=== PATIENT | female | born 1955 | race Caucasian/White ===

== ENCOUNTER 2023-10-20 09:44 | Outpatient (REF) | payer BC, SELFPAY ==
--- NOTE | ~2023-10-20 | US_ITS ---
EXAMINATION: Noninvasive assessment of the right lower extremity with ARTERIAL DUPLEX. CLINICAL INFORMATION: Peripheral vascular disease with history of right SFA occlusion TECHNIQUE: Duplex Doppler techniques with waveform analysis and measurement of velocities in the right common femoral, profunda femoris, superficial femoral, popliteal and tibial arteries were performed. COMPARISON: None FINDINGS: DIRECT DUPLEX DOPPLER FINDINGS: RIGHT LEG: Common femoral artery: 110 cm/s, phasicity: Triphasic Profunda femoris artery: 158 cm/s, phasicity: Triphasic Superficial femoral artery (proximal): 99 cm/s, phasicity: Monophasic Superficial femoral artery (mid): 42.1 cm/s, phasicity: Monophasic Superficial femoral artery (distal): Occluded Popliteal artery: Occluded Posterior tibial artery: 27.3 cm/s, phasicity: Monophasic Peroneal artery: Not visualized Anterior tibial artery: 22.3 cm/s, phasicity: Monophasic Dorsalis pedis artery: 14.9 cm/s, phasicity:Monophasic US/US arterial duplex LE RT IMPRESSION: 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
[2023-10-20 10:38] LABS: INTERNATIONAL NORM RATIO 0.8 (0.9-1.1); Prothrombin Time 10.2 SEC (11.1-13.3)
[2023-10-20 10:40] LABS: Partial Thromboplastin Time 28.5 SEC (26.0-36.8)
[2023-10-21 15:29] LABS: Homocysteine 14.2 umol/L (<10.4)
[2023-10-21 23:44] LABS: Cardiolipin IgG Ab <2.0 GPL-U/mL; Cardiolipin IgM Ab <2.0 MPL-U/mL
[2023-10-24 22:48] LABS: Anti-Thrombin III Antigen 116 % normal (80-120)
[2023-10-25 00:34] LABS: Protein C Activity 145 % normal (70-180); Protein S Activity rflx Tot&Fr 130 % normal (60-140)
[2023-10-28 23:44] LABS: PTT (LAC) Screen 29 sec (<=40)
[2023-10-29 22:12] LABS: Factor V Leiden NEGATIVE
[2023-10-29 22:32] LABS: Prothrombin 20210A NEGATIVE
== END 2023-10-20 09:45 | disposition home or self-care (01) ==
LOC: HO.US 09:44
PROVIDERS: PCP Nurse Practitioner Adult Health; Visit Provider Internal Medicine Medical Oncology
DX: I70.201 Unspecified atherosclerosis of native arteries of extremities, right leg (principal)
CPT/HCPCS: 36415; 81240; 81241; 83090; 85301; 85302; 85303; 85306; 85597; 85598; 85610; 85613; 85730; 86147; 93926

== ENCOUNTER 2024-02-09 13:35 | Outpatient (AMB) | payer BC, SELFPAY ==
--- NOTE | 2024-02-09 13:41 | A.OFFVIS_ITS ---
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 Complex history. States she has trouble walking, feel like she is swaying/swinging . Uses a cane to ambulate. 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 She has been seen by multiple providers including at [facility], [facility], and [facility]. She was told approximately 5 years ago that she had a 70% occlusion of the SFA of her right lower extremity. The vascular surgeon at the time mentioned that she should walk to help. She was placed on Eliquis 2.5 mg b.i.d. by the vascular surgeon at [facility]; however, the patient took herself off of it this past August. She states most of the pain is a burning sensation along with numbness; her right foot more than her left foot. She states the pain worsens when she is walking and only slightly decreases when resting. She denies any history of DVT, PE, and phlebitis. She states she used to be very active. She has never been a smoker. She is nondiabetic. She is working on getting all her medical appointments with the [facility] group. She has not seen Cardiology or Neurology yet at this point. She continues to have hip pain, which is making walking difficult. [facility] Medical History Melanoma Blood pressure check Surgical History Status post reverse arthroplasty of right shoulder (~10/18/18) Social History Household Members: Spouse Patient Tobacco Use Status: Never used Tobacco Substance Use Type: Marijuana service: No Current occupational status: retired Review of Systems Const Reports as per HPI and Denies weakness ENT Reports Normal hearing present and Denies dizziness Card Reports as per HPI, Denies chest pain, Denies chest pain at rest, Denies chest pain with activity, Denies dyspnea and Denies dyspnea on exertion Resp Reports as per HPI, Denies cough, Denies dyspnea and Denies dyspnea on exertion GI Reports as per HPI, Denies abdominal pain, Denies nausea and Denies vomiting Musc Denies numbness Skin/Breast Reports as per HPI, Denies erythema and Denies wounds Neuro Reports Normal hearing present, Denies dizziness, Denies numbness, Denies Sensory deficit (Neuro) and Denies weakness Psych Reports no additional complaints Endo Reports no additional complaints Physical Exam Const General: healthy appearing and no acute distress Orientation/consciousness: patient oriented x3 HEENT Head: Yes normal to inspection Ears: hearing grossly normal bilaterally Mouth: Normal oral and palatal mucosa present Resp Effort & Inspection: normal respiratory effort and able to speak in complete sentences Auscultation: clear to auscultation bilaterally Cardio Jugular venous distension: no JVD Rate: regular rate Rhythm: regular rhythm Heart sounds: S1 normal heart sound present and S2 normal heart sound present Bruits: no abdominal aortic bruits, no carotid bruits, no femoral bruits and no renal bruits Peripheral pulses: Peripheral pulses 2+ throughout GI Inspection: Yes normal to inspection Palpation (GI): No Abdominal aortic bruit present Skin Other: Strong and palpable DP and PT pulses bilaterally. No wounds, lacerations, or lesions noted in lower extremities. General skin exam: no rashes or lesions noted Wounds: no wounds Hair: normal Neuro General: patient oriented x3 Cranial nerves: Yes Normal hearing present Cognition (Neuro): normal cognition Gait exam (Neuro): Normal gait present Motor exam (neuro): 5/5 motor strength present throughout Sensory Exam: No Sensory deficit (Neuro) Extrem General: Yes normal to inspection, Yes full ROM, Yes capillary refill normal and Yes normal gait Results Reviewed Results Reviewed: Reviewed patient's chart. Reviewed arterial duplex of the right lower extremity from 10/20/2023 Assessment & Plan Assessment & Plan (1) Femoral artery occlusion, right: Code(s): I70.201 - Unspecified atherosclerosis of [place] arteries of extremities, right leg Category: Medical Plan: Asiya is presenting today on referral from her PCP for ongoing claudication, right more than left lower extremity, going on for approximately 5 years now. She states the pain gets worse with walking and intermittently gets better when resting. She is looking to get some answers of why this continues to hurt. She also complains more of right foot burning and numbness. We discussed likely that is a neuropathic issue, which he would need a referral to Neurology for. We discussed that on the duplex it revealed she had a chronic right SFA occlusion as well as a popliteal artery occlusion. We discussed possible treatment options; however, at this point she is not sure what she would like to do. We discussed the complications of the surgery. We also discussed that this may help with some of the pain that she has been experiencing but may not help with all of the pain and likely will not help with the burning or numbness of the right foot. I discussed with her that she does not need to make a decision about the treatment options at this point. She can reach out to us at any point and we can have a further discussion about treatment options. We will have her follow up with us as needed. Thank you for the consult. There are any questions or concerns please do not hesitate to reach out to us. Coding Level of Care Code New Pt New Pt Level 4 (79886) Patient Type New Diagnoses Femoral artery occlusion, right I70.201 Time Spent (min) 45 Comment review of US, pt education, discussion of tx options
== END 2024-02-09 14:18 | disposition home or self-care (01) ==
PROVIDERS: PCP Nurse Practitioner Adult Health; Visit Provider Physician Assistant Surgical
DX: I70.201 Unspecified atherosclerosis of native arteries of extremities, right leg (principal)
CPT/HCPCS: 99204

== ENCOUNTER → 2024-02-09 13:35 | Outpatient (BNVA) | payer BC, SELFPAY | PROVIDERS: PCP Nurse Practitioner Adult Health; Visit Provider Physician Assistant Surgical ==

== ENCOUNTER 2025-02-17 09:54 | Outpatient (AMB) | payer BC, SELFPAY ==
--- NOTE | 2025-02-17 10:02 | MHC.PC.OV ---
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 Transferring care from [facility]. Medical records have been requested and have not received. 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 per policy Accompanied by: Self / Same As Patient Allergies vancomycin Allergy (Unknown, Verified 02/17/25 10:03) Redness of Skin tetracaine (TETRACAINE) Adverse Reaction (Unknown, Verified 02/17/25 10:03) CYSTITIS Medication List - Last Reconciled 02/17/25 by Lala Hyatt MD aspirin 81 mg PO DAILY brimonidine 0.2% 1 drp ophthalmic (eye) DAILY celecoxib 200 mg PO BID irbesartan 150 mg PO DAILY multivitamin with minerals (Hair,Skin and Nails tablet) 1 tab PO DAILY Tobacco use date assessed: 02/17/25 Fall risk assessment: No Falls in past year Last assessed Fall Risk: 02/17/25 Dental Screening Dental Screen Date: 02/17/25 Did you have a dental visit in the last 12 months?: Yes Did you have a dental problem in the last 6 months where you did not have access to dental care?: No Was dental information given to patient?: Patient has dentist HPI HPI Comments History of Present Illness Details The patient is a 69-year-old female with PMH of HTN, Takotsubo, fibromyalgia, Carpal tunnel syndrome, claudication 2/2 right femoral artery occlusion, ear pain, born with one kidney, insomnia, asymptomatic gallstone presenting to establish care. The patient has a history of uncontrolled hypertension with a reading of 170s/90s mmHg today. She currently takes irbesartan at night but has had poor tolerance to lisinopril and atenolol in the past, with the latter causing symptomatic hypotension and confusion. She reports home blood pressure readings are similarly high. The patient has a history of arterial occlusion in the femoral and popliteal arteries and spinal stenosis, causing both vascular and neurogenic claudication, which limits her ability to walk and for which she takes Aspirin. She was previously on Eliquis, which she discontinued, and has inquired about cilostazol with her vascular specialist. In September of this year, the patient developed right ear popping, cracking, ringing, and subsequent complete hearing loss. She was diagnosed with an ear infection and treated with amoxicillin 875 mg, after which the infection and hearing loss resolved. She has an ENT appointment scheduled for May. The patient has a history of dental problems, including a tooth she self-extracted that smelled infected, and she is concerned a piece may remain. She requires dental clearance for a planned hip surgery on May 16 and has an appointment with a new dentist on the . The patient reports her watch has recorded blood oxygen levels falling into the 70s during sleep, and she occasionally wakes up with a snort. She had a sleep study many years ago. Past medical history is notable for melanoma removed about 10 years ago, three prior joint replacements, and glaucoma treated with brimonidine eye drops. Her mother had breast cancer. [facility] Medical History (Updated 02/17/25 @ 12:08 by Lala Hyatt MD) Melanoma Blood pressure check Surgical History (Updated 02/17/25 @ 10:22 by CHARI Soto) History of right hip replacement History of total left knee replacement (TKR) Status post reverse arthroplasty of right shoulder (~10/18/18) Social History (Updated 02/17/25 @ 10:02 by CHARI Soto) Household Members: Spouse Alcohol intake: never Patient Tobacco Use Status: Never used Tobacco e-Cigarette/Vaping Use: Never Used Second Hand Smoke Exposure: No Substance Use Type: Marijuana service: No Current occupational status: retired Cognitive needs: Yes (Glasses) Hearing needs: No Vision needs: Yes (Glasses) Questionnaire PHQ-9 Over the last 2 weeks, how often have you been bothered by any of the following problems? 1. Little interest or pleasure in doing things: not at all 2. Feeling down, depressed, or hopeless: several days 3. Trouble falling or staying asleep, or sleeping too much: more than half the days 4. Feeling tired or having little energy: several days 5. Poor appetite or overeating: several days 6. Feeling bad about yourself - or that you are a failure or have let yourself or your family down: several days 7. Trouble concentrating on things, such as reading the newspaper or watching television: not at all 8. Moving or speaking so slowly that other people could have noticed. Or the opposite - being so fidgety or restless that you have been moving around a lot more than usual: not at all 9. Thoughts that you would be better off or of hurting yourself in some way: not at all Total score: 6 Depression Screening Interpretation: Positive Depression Screening Follow-up: Declines treatment Depression Screening Done: Yes Source: Developed by Drs. Marty Jacob, Brittany Patel, Watson Chen and colleagues, with an educational violetta from [employer]. Thrive Questionnaire Date Thrive assessed: 02/10/25 I am a: Patient What is your living situation today?: I have a steady place to live Within the past 12 months, did the food you bought not last and you didn't have the money to get more?: Never true Within the past 12 months, did you worry whether your food would run out before you got money to buy more?: Never true Do you have trouble paying for medicines?: No Do you have trouble getting transportation to medical appointments?: No Do you have trouble paying your heating and electricity bill?: No Do you have trouble taking care of your child, family member or friend?: No Do you have trouble with day-to-day activities such as bathing, preparing meals, shopping, managing finances, etc.?: Yes Are you currently unemployed and looking for a job?: No Are you interested in more education?: I choose not to answer this question Please select the resources that you would like help with: None Currently or been in a relationship where the following occur: I choose not to answer THRIVE Score: 0 AUDIT C Alcohol Use Questionnaire (AUDIT-C) 1. How often do you have a drink containing alcohol?: Monthly or less 2. How many drinks containing alcohol do you have on a typical day when you are drinking?: 1 or 2 3. How often do you have six or more drinks on one occasion?: Never Total Score: 1 CAR-7 AMB Questionnaire CAR-7 Date CAR - 7 assessed: 02/17/25 Feeling nervous, anxious, or on edge: 0 = Not at all Not being able to stop or control worryin = Not at all Worrying too much about different things: 1 = Several days Trouble relaxin = Nearly every day Being so restless that it is hard to sit still: 0 = Not at all Becoming easily annoyed or irritable: 1 = Several days Feeling afraid as if something awful might happen: 0 = Not at all Total CAR-7 score (0-4 normal; 5-9 mild; 10-14 moderate; 15-21 severe): 5 Source: Developed by Drs. Marty Jacob, Brittany Patel, Watson Chen and colleagues, with an educational violetta from [employer]. Review of Systems Const Details: As per HPI. Physical exam (Primary Care) Vital Signs: Last Vital Signs Temp 96.9 F 02/17/25 10:03 Pulse 80 02/17/25 10:03 BP 170/90 H 02/17/25 10:03 Pulse Ox 98 02/17/25 10:03 Oxygen Delivery Method Room Air 02/17/25 10:03 BMI result Body Mass Index 32.0 Tobacco/Smoking Status: Tobacco use Status Tobacco use date assessed 02/17/25 02/17/25 10:24 Patient Tobacco Use Status Never used Tobacco 02/17/25 10:24 e-Cigarette/Vaping Use Never Used 02/17/25 10:24 PHQ-9: PHQ-9 Score PHQ-9: Total score 6 02/17/25 10:24 Depression Screening Interpretation: Positive Depression Screening Follow-up: Declines treatment Thrive Assessment: Date of Thrive Assessment Date Thrive assessed 02/10/25 02/17/25 10:24 Currently or been in a relationship where the following occur: I choose not to answer Const Other: Pertinent findings are in BOLD GENERAL APPEARANCE NAD, activity normal for age, well developed/ well nourished, no cyanosis, pallor, or diaphoresis. EYES lids/conjunctiva normal. EARS/NOSE/THROAT Mucous membranes moist, nares normal, lips/teeth normal uvula midline without oral pharyngeal erythema, exudate or swelling TMs normal bilaterally. No lymphangitis/lymphedema. Ears: no erythema, tympanic membranes clear. HEAD/NECK normocephalic atraumatic, no facial trauma, neck is supple. RESPIRATORY respiratory effort normal, speaks in full sentences, no tripod position, no accessory muscle use. Lungs clear to auscultation without rhonchi, wheezes, rales CARDIAC Regular rate and rhythm, no edema. ABDOMINAL Soft, ND/NT. No evidence of fluid wave. No pulsatile masses on exam, rebound tenderness, Howard sign or pain over Mcburney's point. MUSCLES/EXTREMITIES No abnormal range of motion, no swelling. Limping due to knee pain. SKIN Warm, pink and dry. No rashes, dermatoses, petechiae or lesions. NEUROLOGICAL Speech is clear and appropriate. Normal level of consciousness. Gait and coordination are normal. 5/5 strength in all extremities. PSYCH Normal mood and affect. Judgement/competence is appropriate Coding Level of Care Code New Pt Level 5 (35980) New Pt Prev Care >65yr (66227) Diagnoses Sleep-related hypoxia G47.34 Healthcare maintenance Z00.00 Femoral artery occlusion, right I70.201 Primary hypertension I10 Hypertension type: primary hypertension Ear pain, right H92.01 Current mild episode of major depressive disorder, unspecified whether recurrent F32.0 Depression Type: major depressive disorder Major depression recurrence: unspecified whether recurrent Major depression episode severity: mild Active/Remission status: currently active Congenital absence of one kidney Q60.0 Time Spent (min) 60 Assessment & Plan Assessment & Plan (1) Sleep-related hypoxia: Code(s): G47.34 - Idiopathic sleep related nonobstructive alveolar hypoventilation Category: Medical Plan: - The patient reports nocturnal oxygen desaturations into the 70s on her watch and waking up with a snort. - Her last sleep study was many years ago. - A referral to sleep medicine will be placed for a new sleep study to evaluate for obstructive sleep apnea. (2) Healthcare maintenance: Code(s): Z00.00 - Encounter for general adult medical examination without abnormal findings Category: Medical Plan: CBC, CMP, Lipid panel, A1C, TSH w T4, vit D. Ordered today. Shingles 2 doses when >50 yo. Declined. COVID: two doses. Completed. Tdap: Within 10 years. Pneumococcal: >50 yo. 18-49 with CKD, lung disease, weakened immune system, Heart disease, DM, cochlear implant. Completed. Flu vaccine: Declined. Colonoscopy: 45-75. Had one more than 10 years ago. Declined repeat. Declined Cologuard. AAA: 65 -75. NI[address] CT lun - 80. NI. HPV: Aged out. HIV: Declined. HCV: Decelined. Dexa: Ordered today. Mammogram: Ordered today. (3) Femoral artery occlusion, right: Code(s): I70.201 - Unspecified atherosclerosis of [place] arteries of extremities, right leg Category: Medical Plan: Seen by Hematology in September 2023 who ordered a hypercoagulable W-U which was negative. She saw Dr. Santa at [facility] who advised for Eliquiss 2.5 mg BID which was then tapered off. Femoral artery occlusion and popliteal artery occlusion: seen by Vascular surgery in 01/2024. Considered stent placement but the patient declined. (4) HTN (hypertension): Code(s): I10 - Essential (primary) hypertension Category: Medical Qualifiers: Hypertension type: primary hypertension Qualified Code(s): I10 - Essential (primary) hypertension Plan: - The patient's blood pressure is uncontrolled at 170s/90s mmHg on irbesartan alone. - Past trials of lisinopril and atenolol were not tolerated. - Plan to add amlodipine as a second agent for better blood pressure control, as combining medications with different mechanisms is often more effective and better tolerated than a high dose of a single agent. - Refills will be sent for current medications, including irbesartan. - The patient was instructed to keep a daily blood pressure log. - A follow-up visit is scheduled in one month to review the blood pressure log and assess response to treatment. (5) Ear pain, right: Code(s): H92.01 - Otalgia, right ear Category: Medical Plan: Patient reports long history of ear pain. Her ears today were clear with no infection or inflammation. The patient has follow-up with ENT in few months. We will follow-up with patient if her symptoms improved. (6) Depression: Code(s): F32.A - Depression, unspecified Category: Medical Qualifiers: Depression Type: major depressive disorder Major depression recurrence: unspecified whether recurrent Major depression episode severity: mild Active/Remission status: currently active Qualified Code(s): F32.0 - Major depressive disorder, single episode, mild Plan: - The patient reports feeling short-tempered, having low energy, and lack of motivation, which she attributes to poor sleep and physical limitations. - She has tried Wellbutrin in the past and did not like the side effect. - She declined restarting medication or pursuing therapy at this time. - She denies any thoughts of self-harm. - The plan is to monitor her mood, with the expectation that addressing her sleep issues may provide improvement. (7) Congenital absence of one kidney: Code(s): Q60.0 - Renal agenesis, unilateral Category: Medical Plan: CTM. Caution with nephrotoxic medications. Plan I discussed with the patient the management of her uncontrolled hypertension. I explained the rationale for adding amlodipine to her current irbesartan, noting that using two medications with different mechanisms at lower doses is a preferred strategy for efficacy and side effect profile compared to a single agent at a high dose. I instructed her to keep a daily blood pressure log and scheduled a one-month follow-up to review her progress. We discussed her concerning reports of low oxygen levels during sleep, and I advised repeating her sleep study to investigate for sleep apnea. I ordered baseline labs, a screening mammogram, and a DEXA scan for routine health maintenance. I acknowledged her declining certain screenings and vaccinations. We reviewed her upcoming appointments for pre-operative clearance for her hip surgery and I supported her plan to ask the appointment specialist to order the necessary echocardiogram. We also addressed her low mood and energy. I acknowledged her decision to defer psychotherapy or medication at this time and confirmed she does not have any thoughts of self-harm. Time spent 60 minutes. This includes clinical examination, chart review, note, and extensive discussions with the patient. Orders: Orders Vitamin D 25-OH Total Today Z00.00 - Encounter for general adult medical examination without abnormal findings TSH reflex Free T4 Today Z00.00 - Encounter for general adult medical examination without abnormal findings Hepatitis C Antibody Reflex Today Z00.00 - Encounter for general adult medical examination without abnormal findings Complete Blood Count no Diff Today Z00.00 - Encounter for general adult medical examination without abnormal findings Basic Metabolic Panel Today Z00.00 - Encounter for general adult medical examination without abnormal findings Lipid Panel Today Z00.00 - Encounter for general adult medical examination without abnormal findings HIV Ab/Ag Today Z00.00 - Encounter for general adult medical examination without abnormal findings XR DEXA axial skeleton Today Z00.00 - Encounter for general adult medical examination without abnormal findings MM screening mammo BI Today Z00.00 - Encounter for general adult medical examination without abnormal findings Referrals Sleep Medicine Referral G47.34 - Idiopathic sleep related nonobstructive alveolar hypoventilation Medications: New aspirin 81 mg PO DAILY 60 caps 3RF celecoxib 200 mg PO BID 30 caps 3RF irbesartan 150 mg PO DAILY 90 tabs 3RF multivitamin with minerals (Hair,Skin and Nails tablet) 1 tab PO DAILY 60 tabs 3RF amlodipine 10 mg PO DAILY 90 tabs 3RF
[2025-02-17 10:03] VITALS: BP 170/90; PULSE 80; TEMP 36.1; O2SAT 98; BMI 32.0
--- OUTSIDE RECORDS SUMMARY | 2025-02-17 11:07 | XMS_ITS | Patient Health Record ---
[facility] Address [address] [place] [address] Care Team Providers Care Chief Medical Technologist Name Role Phone Triston CLEMENTE, Lorrie Primary Care Provider Gloria Jaffe Unavailable [phone] Allergies Allergen (clinical drug ingredient) Drug/Non Drug Allergy documented on EMR Reaction Allergy Type Onset Date Status tetracycline TETRACYCLINE Sensitive Cystitis Drug Allergy Active Reason For Referral No Information Medications Medication SIG (Take, Route, Fr equency, Duration) Notes Start Date End Date Status CeleBREX 200 MG 1 capsule with food Orally Once a day 200-400 Generic Active Social History Tobacco Use: Social History Observation Description Date Details (start date - stop date) Never Smoker NA - NA Tobacco Use/Smoking Question Answer Notes Are you a nonsmoker Alcohol Screen (Audit-C) Question Answer Notes Did you have a drink contain ing alcohol in the past year? Yes How often did you have a dri nk containing alcohol in the past year? 2 to 4 times a month (2 points) How many drinks did you have on a typical day when you were drinking in the past year? 1 or 2 drinks (0 point) Points 2 Interpretation Negative Sexual History Question Answer Notes Had sex in the past 12 months (vaginal, oral, or anal)? No Problems Problem Type SNOMED Code ICD Code Onset Dates Problem Status W/U Status Risk Notes Problem Postmenopausal atrophic vaginitis (22827833) Postmenopausal atrophic vaginitis (N95.2) Active confirmed Problem Essential hypertension (07137181) Essential (primary) hypertension (I10) Active confirmed Problem Major depression, single episode (00873752) Major depressive disorder, single episode, unspecified (F32.9) Active confirmed Problem History of malignant melanoma of the skin (691584341767) Personal history of malignant melanoma of skin (Z85.820) Active confirmed Problem Menopausal symptom (55722233) Symptomatic menopausal or female climacteric states (627.2) Active confirmed Major Plan Of Treatment Pending Test Test Name Order Date THIN PREP,HPV,KELLI IF HPV+ (>29YR)(SCRN) 07/01/2017 MM Digital Mammo Screening 07/01/2017 Insurance Providers Payer Name Payer Address Payer Phone Subscriber Number Group Number Insured Name Patient Relationship to Insured Coverage Start Date Coverage End Date [facility] [address] [place] [address] [id number] [employer] DUNC[employer] Self - patient is the insured Medical (General) History Medical History History ICD Code Essential (primary) hypertension I10 Personal history of malignant melanoma o f skin Z85.820 Major depressive disorder, single episod e, unspecified F32.9 Melanoma Unspecified osteoarthritis, unspecified site M19.90 Gallbladder disease Surgical History Surgery Date(Month/Year) Right Hip Replacement 06/26/04 Tonsillectomy 1960 Left Knee Arthroscopy x 3 Bilateral Knee Replacements 04/15/11 Colonoscopy Removal of Melanoma colposcopy 1976 Hospitalization History Reason Date(Month/Year) See Surgical Hx
--- OUTSIDE RECORDS SUMMARY | 2025-02-17 11:07 | XMS_ITS | Data Portability ---
Author Organization [place] - [facility], [facility] - INPATIENT Address [address] [place] [address] Care Team Providers [employer] Distributor Name Role Phone ANITA ZAZUETA NP Primary Care Provider APRIL CARSON Screen Handler [phone] Assessment Encounter Date Assessment Date Assessment LastModified by Organization Details LastModified Time 11/02/2020 11/02/2020 Diagnostic Imaging: Grashey, axillary, and humerus views of RIGHT shoulder demonstrate well aligned prosthetic components. There is no evidence of hardware failure, there is no periprosthetic lucency. The prosthesis is well centered. Alignment is unchanged compared to prior x-rays. No radiographic abnormalities noted. 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 Regarding her RIGHT shoulder, part is doing pretty well. I do think she would benefit from some formal physical therapy, was given a prescription for that today. I will also send prescription for Celebrex, as well as a Medrol Dosepak to her pharmacy on file. Her RIGHT shoulder, she will keep me apprised of her status, and will follow up for her 5 year visit. Regarding her weakness, and feeling of fogginness , I elected to get evaluation from neurology, as these are somewhat concerning symptoms. If it was just her lower extremities, it might be a trigger to his spinal stenosis, but want to make sure she does not have something more serious, possibly multiple sclerosis. A total of 30 minutes was spent on the day of the visit, which included the patient viewing an educational video discussing risks and benefits of shoulder replacement, time spent preparing to see the patient, obtaining a pertinent H&P, review and discussion of imaging with the patient, discussion of patient anatomy, discussion of both non-surgical and surgical treatment options, answering patient questions, and documentation of the visit in EHR. This visit is a tiux-ho-dayj visit during the COVID-19 pandemic. Based on my clinical judgment, I felt that this visit could not be provided safely and appropriately via TeleHealth. Based on available information prior to presentation, the patient had a high risk of significant worsening and potential functional impairment affecting ADLs if the visit was not completed today. The patient was seen in the office after following PPE use, Workforce Safety, Patient Safety and Infection Control protocols for all services provided today in accordance with [facility] and CDC Guidelines. There was additional practice expense incurred due to the Public Health Emergency. This additional expense includes but is not limited to: - Additional clinical staff and medical technical writer and editor time for pre-screening - Time spent reviewing COVID social distancing guidelines, precautions, instructions, and signage - Patient symptom checking upon arrival - Application, removal, and purchasing of additional PPE - Additional cleaning of exam room, equipment, supplies, as well as cleaning supplies for that purpose. This note was dictated with Jill. Please excuse any errors in spelling/transcri ption, which may have changed the context of the sentence. Not available 11/02/2020 15:16:16 09/26/2021 09/26/2021 DATA: EMG nerve conduction study is reviewed and interpreted from 01/16/2020. We have the full report. It is consistent with bilateral severe carpal tunnel syndrome. The distal median motor latency on the right was 10.4 compared to the left at 10.7 with a decreased amplitude. The EMG was abnormal on both sides in the APB. PLAN: The findings were reviewed with the patient, including the examination results, diagnosis and planned treatment(s). The treatment options were discussed. All questions were answered. Patient will call if there are any problems or questions. The symptoms, signs, natural history and treatment alternatives of each of the diagnoses were discussed. We discussed the options. We discussed the options for carpal tunnel both nonoperative and operative treatment. I discussed that she should have surgery, and she may not ever recover from this even with surgery, but the longer she has symptoms the less likely she is to recover. She wants an injection on the left and right. She does not want to schedule a follow-up. PROCEDURE: I have recommended an injection. I explained that a steroid and local anesthetic injection usually decreases pain, inflammation and symptoms of the condition. The office will be called immediately if there are any problems (i.e. pain, signs of infection) after the injection. Written instructions were given. The risks, complications, benefits and alternatives were discussed including but not limited to pain, infection; unrelieved, recurrent or worsening symptoms; tendon, nerve or joint injury. The patient is aware that additional injections may be necessary. I gave no guarantees regarding outcome. If they have diabetes the cortisone may upset their diabetic protocol and if there is a problem they should contact their physician who takes care of their diabetes. The possibility of fat atrophy and depigmentation was discussed. Educational material was given. After sterile prep using aseptic technique, the left and right carpal tunnel were injected without difficulty with 10mg of Kenalog and 2cc of Lidocaine. She tolerated it well. We will see her back as needed. [email or web address] Not available 09/26/2021 12:16:56 10/07/2021 10/07/2021 Diagnostic Imaging: Grashey, axillary, and humerus views of Right shoulder demonstrate well aligned prosthetic components. There is no evidence of hardware failure, there is no periprosthetic lucency. The prosthesis is well centered. Alignment is unchanged compared to prior x-rays. No radiographic abnormalities noted. Assessment/Plan: 66-year-old female status post right RSA 10/18/2018. Regarding her right shoulder, X-rays are great, she has good range of motion, and her overall pain and function are improving, which is positive. A refill for Celebrex was sent to her pharmacy. Regarding her intermittent claudication and RLE vascular disease, I defer to the vascular team and her PCP for treatment. Given the chronicity of her complaints, it is possible that her RLE vascular disease is related to her prior surgeries, there's no way to really know for sure. Not available 10/07/2021 15:17:29 08/11/2022 08/11/2022 Data:X-Ray AP/Grashey Right shoulder- 3: Well-placed reverse prosthesis. No evidence of hardware failure or radiographic lucencies. Impression/Plan: 67 year old female here for f/u evaluation of her RIGHT Reverse. Explained to Asiya that all prosthetic components appear solid via X-ray. With respect to her shoulder, she is cleared to continue using it as she tolerates. F/u in 1 year for continued evaluation. Unfortunately, she has certainly had an arduous timeline with respect to her vascular and cardiac issues (lower extremity DVT, heart attack.) While she is certainly in good hands with Dr. Bruce, explained it may be beneficial for her to consider consultation with a editorial writer for further work up. She should consult with her PCP concerning this. With respect to her hip and treatment at [facility], urged her to consider evaluation with Dr. Aviles. While peripheral artery disease is certainly likely, she should still seek evaluation with the proper specialists for proper appropriate diagnosis. We will refill her Celebrex as well. I spent a total of 45 minutes on the day of the visit, which includes time spent preparing to see the patient by reviewing records/test results including patient radiographs, obtaining patient history, performing a medically necessary examination, counseling/educat ing the patient on continued shoulder care, coordinating patient care, and documenting information in the EHR Not available 08/11/2022 09:20:06 10/19/2023 10/19/2023 X-Ray AP/Grashey Right shoulder-10/19/2023 : Well-placed reverse prosthesis. No evidence of hardware failure or radiographic lucencies. ASSESSMENT: - Post-op shoulder recovery, satisfactory - Suspected long COVID, undiagnosed - Vascular concerns, to be evaluated by a vascular specialist - Hematological concerns, under investigation PLAN: The patient is advised to continue with her scheduled appointments with the vascular specialist and editorial writer. She is also scheduled for a blood draw for clotting issues and a lower body ultrasound. She is encouraged to continue her current medication regimen, including bromide, which seems to be helping with the burning sensation in her hands. The patient is also advised to continue with her physical activities as tolerated. The patient's concerns about her overall health and the healthcare system are acknowledged, and she is reassured that her shoulder recovery is progressing well. Patient presents to clinic 5 year s/p reverse total shoulder arthroplasty. They are doing very well at this time. Explained that all prosthetic components appear solid via X-ray with no immediate evidence of gross hardware failure or radiographic lucencies. They have returned to most ADLs and recreational activities without significant pain or impediment. At this point they are cleared to continue using their shoulder for whatever actions they tolerate. F/u in 5 years for their 10 year f/u appointment. I spent a total of 15 minutes on the day of the visit with the patient. This includes time spent reviewing pertinent medical records, test results, and radiographs prior to the appointment. With the patient, a medically necessary physical examination was performed. Finally, time was spent counseling/educat ing the patient on next steps in the postoperative timeline, continued shoulder care, planning and documenting information in the EHR Not available 10/19/2023 14:51:38 Plan of Treatment Reminders Order Date Submit Date Provider Last Modified By Organization Details Last Modified Time Details Appointments None recorded. Lab None recorded. Referral neurologist referral 2020 021 [email or web address] Not available 15:29:34 Procedures None recorded. Surgeries None recorded. Imaging None recorded. Medication Orders celecoxib 200 mg capsule 2021 022 [facility] #[id number], [address] [place], [address], 2 15:17:35 Kenalog 10 mg/mL suspension for injection 2021 022 Not available 13:55:53 celecoxib 200 mg capsule 2020 021 [facility]/Pharmacy #[id number], [address] [place], [address], 1 15:09:02 Medrol (Jorge) 4 mg tablets in a dose pack 2020 021 [id number] [address] [place], [address], 1 15:09:02 Patient TargetsNo targets recorded. Patient InstructionsNo instructions recorded. Reason for Referral Neurologist Referral for Mus samuel weakness Referring Physician: Jasmeet Stockton Physician Brass Pickler, Encounter Date: 11/02/2020 Results Created Date Observation Date Name Description Value Unit Range Abnormal Flag Note LastModifiedBy Organization Detail LastModifiedTime 11/03/19 21 11/02/2020 xr humer us right 2 views minim um Fin al Report EXAM#: [id number] PROCED URE: DXR 0094 XR HUMERU S RIGHT 2 VIEWS MINIMU M Nov 02 2020 1:01PM CLINIC AL INDICA TION: pain in right should er There is a TSR in place whose prosth etic elemen ts are in anatom ic alignm ent withou t radiog raphic eviden ce of loosen ing. NUMBER OF IMAGES : 1 Report ed by : MAE KLEIN M.D. On: Nov 02 2020 1:16P Signed by: MAE KLEIN M.D. On: Nov 02 2020 1:16P [email or web address] [place] [address] Radiology [address] [place], [address], 11/02/2020 13:25:01 11/03/19 21 11/02/2020 XRdeep, 2 or more view Fin al Report EXAM#: [id number] PROCED URE: DXR 0146 XR SHOULD ER RIGHT 2 VIEWS Nov 02 2020 1:01PM CLINIC AL INDICA TION: pain in right should er There is a TSR in place whose prosth etic elemen ts are in anatom ic alignm ent withou t radiog raphic eviden ce of loosen ing. NUMBER OF IMAGES : 2 Report ed by : MAE KLEIN M.D. On: Nov 02 2020 1:16P Signed by: MAE KLEIN M.D. On: Nov 02 2020 1:16P [email or web address] [facility] [address] [place], [address], 11/02/2020 13:25:01 10/08/19 22 10/07/2021 deep PIÑA http:/ [email or web address] [email or web address] [email or web address] ocesso [email or web address] ?CMD=O DEON AGEE&ACC ESSION =[id number] [email or web address] [facility] [address], [place], [address], 10/07/2021 15:24:26 10/08/19 22 10/07/2021 XR, humer us [email or web address] ntegra tionPr ocesso [email or web address] ?CMD=O PENSTU DY&ACC ESSION =[id number] [email or web address] [facility] [address], [place], [address], 10/07/2021 15:24:26 Result Notes Documentation Provider Name and Address Organization Details Recorded Time Xr, Shoulder, 2 Or More View : Final Report EXAM#: [id number] PROCEDURE: DXR 0146 XR SHOULDER RIGHT 2 VIEWS Nov 02 2020 1:01PM CLINICAL INDICATION: pain in right shoulder There is a TSR in place whose prosthetic elements are in anatomic alignment without radiographic evidence of loosening. NUMBER OF IMAGES: 2 Reported by : MAE KLEIN M.D. On: Nov 02 2020 1:16P Signed by: MAE KLEIN M.D. On: Nov 02 2020 1:16P RACQUEL GIVENS [address] [place] [address], [address] [place] [address], [facility] 11/02/2020 13:25:01 Xr, Shoulder : [email or web address]=OPENSTUDY&ACC NMTEDL=[id number] RACQUEL GIVENS [address] [place] [address], [address] [place] [address], [facility] 10/07/2021 15:24:26 Xr, Humerus : [email or web address]=OPENSTUDY&ACC [id number] RACQUEL GIVENS [address] [place] [address], [address] [place] [address], [facility] 10/07/2021 15:24:26 Problems Name Problem SNOMED Code Status Onset Date Resolution Date Notes Provider Name and Address Organization Details Recorded Time Osteoarthritis 538615911 Active 2018 Javier solis, [facility] 9 08:56:58 Carpal tunnel syndrome 54375675 Active 2018 RACQUEL GIVENS [address] [place] [address], [phone], [facility] 0 13:28:11 Numbness of foot 833841624 Active 2018 RACQUEL GIVENS [address] [place] [address], [phone], [facility] 0 13:29:02 Localized, primary osteoarthritis of the shoulder region 619171121 Active 2021 RACQUEL GIVENS [address] [place] [address], [phone], [facility] 2 14:45:34 Problem Notes None recorded. Procedures Surgical History Date Name Laterality Status Provider Name and Address Organization Details Recorded Time 10/19/19 19 Orthopaedic Surgery completed Shazia Mott [facility] 11/01/2018 15:29:55 04/15/20 11 Orthopaedic Surgery completed RACQUEL GIVENS [address] [place] [address], [phone], [facility] 07/13/2019 15:03:20 04/15/20 11 Other completed Zev Mejía [facility] 10/19/2023 12:57:12 06/27/19 05 Orthopaedic Surgery completed Samira Morocho [facility] 08/23/2019 11:10:37 04/20/19 00 Orthopaedic Surgery completed Martinez Up [facility] 07/21/2018 09:15:44 04/20/18 82 Orthopaedic Surgery completed Martinez Up [facility] 07/21/2018 09:15:37 04/20/18 74 Orthopaedic Surgery completed Martinez Up [facility] 07/21/2018 09:15:15 Other completed Martinez Up [facility] 07/21/2018 09:14:56 Imaging Results None recorded. Procedure Notes None recorded. Medical Equipment None Reported. Allergies Allergen ID Allergen Name Allergen Category Reaction Reaction Severity Criticality Documentation Date Start Date Code Code System Note Provider Name and Address Organization Details Recorded Time 568846 tetracycl ine medicatio n Not available Not available Not available 07/21/2018 38813 RxNorm Sensi tivit y- Cysti tis Martinez solis [place] - [facility] 9 07:44:22 [id number] vancomyci n medicatio n Not available Not available Not available 08/23/2019 58568 RxNorm Sensi tivit y Samira Jaen solis [place] - [facility] 0 11:07:21 Medications Name Sig Start Date Stop Date Status Note LastModified by Organization Details LastModified Time celecoxib 200 mg capsule TAKE 1 CAPSULE BY MOUTH TWICE A DAY FOR 30 DAYS active Not Available Not Available No t Available cyclobenzap rine 10 mg tablet prn 09/25 completed Not Available Not Available Not Available amoxicillin 500 mg capsule TAKE FOUR CAPSULES BY MOUTH 1 2 HOUR BEFORE APPOINTME NT 06/23 completed Not Available Not Available Not Available latanoprost 0.005 % eye drops INSTILL 1 DROP INTO BOTH EYES AT BEDTIME active Not Available Not Available No t Available bromelains 500 mg tablet Take 1 tablet every day by oral route. active Not Available Not Available No t Available Stool Softener 100 mg capsule TAKE 1 CAPSULE BY MOUTH ONCE DAILY FOR 3 DAYS PRIOR TO SURGERY 03/11 completed Not Available Not Available Not Available metoprolol succinate ER 100 mg tablet,exte nded release 24 hr TAKE 1 TABLET BY MOUTH EVERY DAY active Not Available Not Available No t Available amoxicillin 500 mg tablet TAKE 4 TABLETS BY MOUTH 1/2 HOUR BEFORE PROCEDURE 10/18 completed Not Available Not Available Not Available amoxicillin 875 mg tablet TAKE 1 TABLET BY MOUTH TWICE A DAY FOR 7 DAYS active Not Available Not Available No t Available Kenalog 10 mg/mL suspension for injection Take 10 mg by injection route. 10/07 completed Not Available Not Available Not Available nystatin 100,000 unit/gram topical cream APPLY TO THE AFFECTED AREA(S) BY TOPICAL ROUTE 2 TIMES PER DAY 10/18 completed Not Available Not Available Not Available brimonidine 0.2 % eye drops INSTILL 1 DROP IN BOTH EYES TWICE A DAY TWELVE HOURS APART active Not Available Not Available No t Available metoprolol tartrate 50 mg tablet active Not Available Not Available No t Available gabapentin 300 mg capsule TAKE 1 CAPSULE BY MOUTH 1 HOUR PRIOR TO SURGERY 06/23 completed Not Available Not Available Not Available gabapentin 100 mg capsule Take 1 capsule every day by oral route. 02/01 completed Not Available Not Available Not Available metoprolol succinate ER 25 mg tablet,exte nded release 24 hr TAKE 1 TABLET BY MOUTH EVERY DAY 10/18 completed Not Available Not Available Not Available irbesartan 150 mg tablet TAKE 1 TABLET BY MOUTH EVERY DAY active Not Available Not Available No t Available methylpredn isolone 4 mg tablets in a dose pack TAKE DIRECTED INSIDE PACKAGE 09/25 completed Not Available Not Available Not Available celecoxib 100 mg capsule Take 1 capsule twice a day by oral route with meal(s). active Not Available Not Available No t Available Hibiclens 4 % topical liquid APPLY FROM NECK DOWN ONCE DAILY FOR 3 DAYS PRIOR TO SURGERY 06/23 completed Not Available Not Available Not Available irbesartan 300 mg tablet TAKE 1 TABLET BY MOUTH EVERY DAY active Not Available Not Available No t Available Naprosyn 10/23 completed Not Available Not Available Not Available ibuprofen 600mg 06/23 completed Not Available Not Available Not Available Vitamin D 10/17 completed Not Available Not Available Not Available Eliquis 2.5 mg tablet TAKE 1 TABLET BY MOUTH TWICE A DAY 10/18 completed Not Available Not Available Not Available Nattokinase 50 mg capsule Take 2 capsules every day by oral route. active Not Available Not Available No t Available aspirin 81 mg capsule Take 1 capsule every day by oral route. active Not Available Not Available No t Available curcumin-ph osphatidylc holine complex 500 mg capsule Take 1 capsule twice a day by oral route. active Not Available Not Available No t Available Vitals Date Recorded Body height Body mass index (BMI) Body weight Provider Name and Address Organization Details Last Updated DateTime 08/11/2022 154.94 cm 30.2 kg/m2 91084.78 g Zev Mejía [facility] 08/11/2022 08:30:55 Date Recorded Body height Body mass index (BMI) Body weight Provider Name and Address Organization Details Last Updated DateTime 09/26/2021 154.94 cm 26.5 kg/m2 85714.93 g Syd Larry [facility] 09/26/2021 10:24:00 Date Recorded Body height Body mass index (BMI) Body weight Provider Name and Address Organization Details Last Updated DateTime 10/07/2021 154.94 cm 30.2 kg/m2 41700.78 g Syd Larry [facility] 10/07/2021 14:03:44 Date Recorded Body height Provider Name an d Address Organization Details Last Updated DateTime 11/02/2020 154.94 cm Ciarra Natalya [facility] 11/02/2020 13:43:24 Social History Question Answer Notes LastModified by Organizat ion Details LastModified Time Tobacco Smoking Status Never Smoker Martinez solis [place] - [facility] 07/21/2018 07:46:16 Auto Related Injury? No Information not available 09/26/2021 What Is Your Level Of Caffeine Consumption? Moderate Information not available 02/02/2020 Have You Been To An Area Known To Be High Risk For COVID-19? No Information not available 09/26/2021 Date Of Injury/Duration Of Injury (weeks, Months, Years) 01/17/2019 Information not available 09/26/2021 Have Any Other Tests Been Done For This Problem? MRI Information not available 09/26/2021 Is This Condition/probl em Affecting Your Ability To Exercise Or Perform Activities Of Daily Living? Yes [email or web address] Information not available 02/02/2020 What Was The Date Of Your Most Recent Tobacco Screening? 11/01/2018 Information not available 09/26/2021 How Much Tobacco Do You Smoke? No Information not available 09/26/2021 What Types Of Sporting Activities Do You Participate In? Cycling, Trike, Walk, Kayak, Dance, Stretching Information not available 09/26/2021 How Many Years Have You Smoked Tobacco? 0 Information not available 09/26/2021 Work Related Injury? Yes 01/28/18 Information not available 09/26/2021 Sex: Unknown Functional Status Question Answer Note LastModified by Organizat ion Details LastModified Time What is your level of alcohol consumption? Occasional Information not available 09/26/2021 Do you or have you ever used smokeless tobacco? Never used smokeless tobacco Information not available 09/26/2021 What is your occupation? Former [employer] [email or web address] Information not available 02/02/2020 Do you or have you ever used e-cigarettes or vape? Never used electronic cigarettes Information not available 09/26/2021 What is your exercise level? Occasional Information not available 02/02/2020 Mental Status None recorded. Family History Relationship Description Onset Age of this Age Resolved Age Notes LastModified by Organization Details LastModified Time Father Family history of stroke 84 [email or web address] Not available 2018 07:45:56 Medical History Condition Response Blood Clots / Phlebitis Y HIV or AIDS N High Blood Pressure Y Depression or Anxiety Y MRSA N Emphysema / Chronic Bronchitis N Any Other Significant Medical Issues Y Reaction to General/Local Anesthesia Y Blood Disorder: Anemia, clotting disorde r, etc. (please specify) N Hepatitis / Jaundice N Weight Gain / Loss Y Diabetes: Type I or II (please specify) N Kidney / Bladder Infections Y Heart Condition: Heart Attac k, Afib, Irregular Heartbeat, etc. (please specify) Y Hearing Loss N Night Sweats Y Seizures / Epilepsy N Cancer Y Stroke N Chemical Dependency / Alcoholism N Ulcer / Stomach Bleeding / Indigestion N Visual Loss or Glaucoma Y Psoriasis / Skin Rash N Thyroid Disorder N Asthma / Shortness of Breath / Sleep Glory Hole Tender ea (please specify) N Pulmonary Embolism N Gynecological HistoryNo gynecological history recorded. Obstetrics History GPAL:G 0 P 0 0 0 0 Immunizations Vaccine Type Date Status Note Provider Nam e and Address Organization Details Recorded Time SARS-COV-2 (COVID-19) vaccine, UNSPECIFIED 1 completed Ciarra solis [place] [facility] [place] 11/02/2020 13:44:30 SARS-COV-2 (COVID-19) vaccine, UNSPECIFIED 1 completed Ciarra solis [place] [facility] 11/02/2020 13:44:34 Past Encounters Encounter ID Performer Location Encounter Start Date Encounter Closed Date Diagnosis/Indication Diagnosis SNOMED-CT Code Diagnosis ICD10 Code Diagnosis IMO Codes Diagnosis Note [id number] SYEDA WAGGONER MD [facility] [address] [place] [id number] 1 07/21/2018 07:23:33 07/21/2018 09:32:51 Osteoarthritis 884376432 M19.011 [id number] SYEDA WAGGONER MD [facility] [address] [place] [address] [id number] 1 10/18/2018 11:43:32 10/18/2018 12:26:07 Osteoarthritis 889823003 M19.011 [id number] SYEDA WAGGONER MD [facility] [address] [place] [address] [id number] 1 11/01/2018 14:16:41 11/01/2018 16:57:01 Osteoarthritis 778577916 M19.011 [id number] RACQUEL CARMONA [facility] [address] [place] [address] [id number] 1 11/30/2018 12:48:21 11/30/2018 13:36:27 Osteoarthritis 511262430 M19.011 [id number] SYEDA WAGGONER MD [facility] [address] [phone] 6 12/13/2018 09:35:24 12/13/2018 10:25:28 Osteoarthritis 252348675 M19.011 [id number] SYEDA WAGGONER MD [address] [address]606 1 01/26/2019 09:37:32 01/26/2019 13:03:07 Osteoarthritis 897705829 M19.011 [id number] RACQUEL CARMONA [address] [id number] 1 03/11/2019 10:48:40 03/11/2019 11:48:57 Osteoarthritis 841559784 M19.011 [id number] SYEDA WAGGONER MD [facility] [address] [place] [id number] 1 04/25/2019 14:03:25 04/25/2019 15:37:27 Osteoarthritis [id number] M19.011 [id number] SYEDA WAGGONER MD [facility] [address] [place] [address] [id number] 1 06/24/2019 12:39:41 06/24/2019 14:31:40 Localized, primary osteoarthritis of the shoulder region [id number] M19.011 [id number] SYEDA WAGGONER MD [address] [address] 3 08/23/2019 11:02:00 08/24/2019 09:29:55 Osteoarthritis 300490406 M19.011 [id number] SYEDA WAGGONER MD [address] [id number] 1 10/24/2019 12:00:56 10/24/2019 14:17:02 Osteoarthritis 614715802 M19.011 [id number] SYEDA DOYLE MD [facility] [address] [place] [address] [id number] 1 02/02/2020 12:56:03 02/02/2020 14:15:11 Bilateral carpal tunnel syndrome [id number] G56.03 INJECT RIGHT [id number] SYEDA DOYLE MD [address] [id number] 1 02/15/2020 12:46:16 02/15/2020 13:23:36 Bilateral carpal tunnel syndrome [id number] G56.03 INJECT LEFT 2 splints for bilateral hands [id number] RACQUEL GIVENS [facility] 40 [facility],[address] [id number] 6 11/02/2020 12:46:09 11/05/2020 09:54:21 Muscle weakness 88527253 M62.81 Osteoarthritis 807098676 M19.90 [id number] SYEDA DOYLE MD [address] [address]29-081 1 09/26/2021 09:51:49 09/26/2021 10:40:24 Bilateral carpal tunnel syndrome [id number] G56.03 [id number] RACQUEL GIVENS [address] [id number] 1 10/07/2021 13:17:27 10/07/2021 15:21:30 Localized, primary osteoarthritis of the shoulder region 082036501 M19.118 [id number] SYEDA WAGGONER MD [facility] [address] [place] [address] [id number] 1 08/11/2022 08:11:29 08/11/2022 09:23:00 Osteoarthritis 127908995 M19.026 [id number] SYEDA WAGGONER MD [facility] [address] [place] [address] [id number] 1 10/19/2023 11:25:05 10/21/2023 12:02:33 Health Concerns Section Related Observation LastModified by Organization Detai ls LastModified Time None Recorded Concern Status LastModified by Organization Details LastModified Time None Recorded Advance Directives Directive None Recorded Payers Insurance Date Sequence Insurance Name Policy Number Policy Rubio Covered Member ID Rubio Member ID Guarantor Name 10/27/2023 [facility] [place] 10/20/2023 1 [facility] (MEDICARE REPLACEMENT PPO) [id number] Asiya Chavez [id number] Asiya [place] 10/19/2023 [facility] Asiya [place] 10/18/2018 1 [facility]: [place] (HMO) [id number] Asiya Chavez [id number] Asiya Chavez 10/24/2019 [facility] Asiya Scott 10/26/2020 1 [facility] PUBLIC PLANS [facility] [place] (HMO) [id number] Asiya Scott [id number] Asiya Scott 09/11/2021 [facility] Asiya Chavez Notes Date Note Type Note Provider Name and Address Organization Details Recorded Time 11/02/2020 text/html 65-year-old female presents to follow-up RIGHT [facility] 10/18/2018. In regards to her RIGHT shoulder, she is she is doing fairly well. She rates her function about 65%, and her pain is 2/10. She notes that she is better from preoperative status. She is doing with other health issues, and notes some weakness in her RIGHT shoulder. She like to restart physical therapy, which was stopped due to the pandemic. She will also like a refill on Celebrex, and notes that she had been taking it with good success in conjunction with turmeric. We also discussed the utility of a dose pack. Separate from her RIGHT shoulder, she notes that she feels like she is in a fog a lot, and that she is dealing with bilateral lower extremity weakness, which may be spinal stenosis. She has not seen a neurologist for this. 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 I last evaluated her on 02/15/2020. She has bilateral carpal tunnel syndrome and would like injections. She is not interested in surgery. She has multiple medical problems including gallstone spinal stenosis and peripheral vascular disease. She has seen Dr. Humphrey who has recommended surgery by her report. She has bilateral hand numbness consistent with carpal tunnel syndrome. I evaluated her initially on 02/02/2020, and I suggested that she consider surgery. The nerve conduction study was consistent with severe carpal tunnel syndrome. She requested an injection. I injected the right carpal tunnel on 02/02/2020. I injected the left carpal tunnel on 02/15/2020 and she felt that helped. Symptoms have recurred. She does not want surgery. She understands she can lose function. She has had multiple trigger digits in the past that have resolved. She has worn splints. SYEDA DOYLE MD [address] [place], [phone], [facility] 09/26/2021 12:17:01 10/07/2021 text/html 66-year-old female presents to follow-up right shoulder RSA 10/18/2018, as well as lower extremity pain. Regarding her right shoulder, she does note improvement. She has fairly good range of motion, for the first time over the past few months, noted that she did have to think about her right shoulder when she did certain activities. She rates her pain as 2-3/10, and her shoulder 62% are normal. she notes she is neutral re: patient satisfaction, but is better compared to preoperative status. When I last saw her 11/02/2020, she was noticing some weakness in her lower extremities. I sent her to Dr. 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 She is then since been referred to vascular provider at [facility]. they are treating this nonoperatively, and she has been placed on aspirin 81, and they are monitoring her status. RACQUEL GIVENS [address] [facility] [place], [phone], [facility] 10/07/2021 15:17:53 08/11/2022 text/html 67 year old female here for f/u evaluation of her RIGHT Reverse (10/18/2018). With respect to her shoulder, Asiya is doing quite well. She has minimal pain and great function. Unfortunately, she is still struggling with generalized symptoms stemming from her vascular complications postoperatively. She has been in contact with Jasmeet over the previous months with respect to her recollection of her decline and development of symptoms. She is still being evaluated by Dr. Bruce who treated her lower extremity DVT. She is currently on Eliquis 2.5mg. She is also seeing her classroom aide, Dr. Mann , who felt her cardiac issues may be associated with Takotsubo cardiomyopathy. She still experiences regular fogginess with cognition and a swaying sensation with general movement which she almost describes as an earthquake. This is being exacerbated by her hip, which has been evaluated by Dr. Mittal in the past. She struggles with most ADLs and recreational activities and is extremely discouraged. She feels she was given the [facility]'s verdin with respect to surgical intervention and in evaluation of her symptoms and struggles postoperatively. She rates her pain at a 2. Her SANE is 80. SYEDA WAGGONER MD [address] [place], [phone], [facility] 08/19/2022 11:33:57 10/19/2023 text/html Asiya Chavez, a 68-year-old female, presents to the clinic for her annual post-op shoulder check-up. She reports that her shoulder pain is better than before surgery and she is able to lift her arm up to 160 degrees. However, she expresses concern about her overall health. She believes she has long COVID, although she never tested positive for the virus. She recalls feeling breathless before her shoulder surgery in 2019. She also mentions that she felt dismissed by another physician in 2019 when she was describing symptoms that she believes were indicative of a blood clot. She is frustrated with the turnover of her classroom aide and vascular doctor at [facility] and has sought care elsewhere. She has an upcoming appointment with a vascular doctor at [facility]. She recently saw a editorial writer and has a scheduled blood draw for clotting issues and a lower body ultrasound. She reports a decrease in occlusion from 70% to 50% since her last ultrasound. She has started on bromelain and has noticed a decrease in the burning sensation in her hands at night. She is concerned about her health and fears that her condition may worsen, leading to her being wheelchair-bound or falling. She also reports an earthquake sensation and swaying, which worsens in smaller rooms. She is upset about the healthcare system and feels that there should be a treatment for her condition. PAIN - 3: ASES - 65: SANE - 85. SYEDA WAGGONER MD [address] [place] [address], [phone], [facility] 10/20/2023 06:08:31 OBGyn Episode No OBEpisode recorded.
== END 2025-02-17 11:17 | disposition home or self-care (01) ==
LOC: HO.HMCH 09:55
PROVIDERS: PCP Internal Medicine; Visit Provider Internal Medicine
DX: G47.34 Idiopathic sleep related nonobstructive alveolar hypoventilation (principal); I70.201 Unspecified atherosclerosis of native arteries of extremities, right leg; I10 Essential (primary) hypertension; H92.01 Otalgia, right ear; F32.0 Major depressive disorder, single episode, mild; Q60.0 Renal agenesis, unilateral

== ENCOUNTER 2025-03-30 14:46 | Outpatient (AMB) | payer MEDICARE, SELFPAY ==
--- OUTSIDE RECORDS SUMMARY | 2025-03-27 13:40 | XMS_ITS | Encounter Summary ---
Author Organization [facility] Address [address] [place] [address] [place] [phone] Phone Care Team Providers Care Quiller Hand Name Role Phone Lala Moncada MD Primary Care Provider [phone] Reason for Referral * MRI/CAT Scan - New Request Specialty Diagnoses / Procedures Referred By Duyen nielson Referred To Contact Radiology Diagnoses Preoperative cardiovascular examination Procedures NC Myocardial Perfusion Pharmacologic Stress Multiple Lisa Mcgowan MD [address] [place] [address] Phone: tel: fax: mailto:[email or web address] Referral ID Status Reason Start Date Expiration Date V isits Requested Visits Authorized New Request 03/27/2025 1 1 * Outpatient Procedure - New Request Specialty Diagnoses / Procedures Referred By Duyen nielson Referred To Contact Diagnoses Dyspnea on exertion Procedures Adult Echo TTE Lsia Mcgowan MD [address] [place] [address] Phone: tel: fax: mailto: Referral ID Status Reason Start Date Expiration Date V isits Requested Visits Authorized New Request 03/27/2025 1 1 Reason for Visit * Consultation (Urgent/Acute (Prioritized Outreach)) - New Request Specialty Diagnoses / Procedures Referred By Duyen nielson Referred To Contact Cardiology Keyla Owens CNP [address] [facility] [address] [place] [address] Phone: tel: fax: mailto:[email or web address] Referral ID Status Reason Start Date Expiration Date V isits Requested Visits Authorized [id number] New Request 02/23/2025 02/23/2026 1 1 Encounter Details Date Type Department Care Team (Late st Contact Info) Description 03/27/2025 1:40 PM EST Office Visit [facility], Cardiology [address] [place] [phone] Lisa Mcgowan MD [address] [place] [phone] [email or web address] Cardiomyopathy (Primary Dx); Preop cardiovascular exam; Primary hypertension; Peripheral vascular disease; Dyspnea on exertion; Preoperative cardiovascular examination Social History Tobacco Use Types Packs/Day Years Used Date Smoking Tobacco: Never Smokeless Tobacco: Never Alcohol Use Standard Drinks/Week Comments Not Currently 0 (1 standard drink = 0.6 oz pur e alcohol) Education Answer Date Recorded Are you interested in more education? Not on brennan e 08/19/2022 Are you concerned about learning? Not on file 08/19/2022 No 08/19/2022 No 08/19/2022 Digital Access Answer Date Recorded No 09/14/2022 No 09/14/2022 Reliable internet access at home? Not on file 09/14/2022 Device with a working camera? Not on file Comments No Sex and Gender Information Value Date Recorded Sex Assigned at Female 06/12/2021 8:24 AM EST Legal Sex Female 6:02 PM EST Gender Identity Female 06/12/2021 8:24 AM EST Sexual Orientation Straight 06/12/2021 8: 24 AM EST documented as of this encounter Last Filed Vital Signs Vital Sign Reading Time Taken Comments Blood Pressure 142/82 03/27/2025 1:19 PM EST Pulse 98 03/27/2025 1:19 PM EST Temperature - - Respiratory Rate - - Oxygen Saturation - - Inhaled Oxygen Concentration - - Weight 72.1 kg (159 lb) 03/27/2025 1:19 PM EST Height 149.9 cm (4' 11 ) 03/27/2025 1:19 PM EST Body Mass Index 32.11 03/27/2025 1:19 PM EST documented in this encounter Progress Notes * Lisa Mcgowan MD - 03/27/2025 1:40 PM EST Lala Moncada MD [address] [facility] [address] Kurt Hyatt, The patient presents today for cardiology consultation Reason for visit: Preop evaluation for L THR 05/16/25 History of Present Illness: This is a 70-year-old female referred by the [facility] for preop cardiac risk assessment for left hip replacement surgery scheduled 05/16/2025. The patient records were reviewed and she appears to have had a history of stress-induced cardiomyopathy in 2021 which has resolved. She had a coronary CTA at that time with mild nonobstructive CAD. She has a history of hypertension managed with amlodipine and irbesartan. She was intolerant to atenolol in the past. The patient normally is active but recently and due to her hip pain she has not been able to exercise. She ambulates with the use of a cane. She is a non-smoker and denies any family history of premature CAD. The patient medications were reviewed and reconciled in records. She denies any chest pain, shortness of breath, orthopnea, PND or pedal edema. She denies any palpitations, dizziness, lightheadedness or syncope. Past Medical History: Hypertension Stress-induced cardiomyopathy November 2021 PAD right SFA occlusion Osteoarthritis Spinal stenosis Past Surgical History: R THR L TKR R shoulder surgery Allergies Allergen Reactions Fluoxetine Other reaction(s): back spasms Vancomycin red man syndromw Tetracycline Other (See Comments) cystitis Outpatient Medications Marked as Taking for the 03/27/25 encounter (Office Visit) with Lisa Mcgowan MD Medication Sig Dispense Refill Last Dispense amLODIPine (NORVASC) 10 MG tablet Take 1 tablet by mouth every morning. Unknown (patient-reported) amoxicillin (AMOXIL) 875 MG tablet Take 875 mg by mouth 2 (two) times a day. for 7 days Unknown (patient-reported) aspirin 81 MG EC tablet Take 81 mg by mouth daily. Unknown (patient-reported) brimonidine (ALPHAGAN) 0.2 % ophthalmic solution Place 1 drop into each eye 2 (two) times a day. Unknown (patient-reported) celecoxib (CELEBREX) 200 MG capsule celecoxib 200 mg capsule TAKE 1 CAPSULE BY MOUTH TWICE A DAY Unknown (patient-reported) irbesartan (AVAPRO) 150 MG tablet irbesartan 150 mg tablet TAKE 1 TABLET BY MOUTH EVERY DAY Unknown (patient-reported) Social History: The patient is with no children. She is a non-smoker and rarely drinks alcohol. She is retired. Family History: Denies family history of premature CAD. Review of Systems: Patient complains mostly of hip pain and leg weakness. She also has chronic depression, anxiety andpoor sleep Constitutional: Denies any fever, chills, night sweats, weight change, or heat/cold intolerance. Gastrointestinal: Denies any abdominal pain, nausea, vomiting, diarrhea, or constipation. Genitourinary: Denies any dysuria, frequency, urgency, hesitancy, incontinence, or hematuria. Respiratory: Denies any coughing, wheezing, sputum, hemoptysis. shortness of breath. Cardiovascular: Denies any chest pain, palpitations, dizziness, syncope, PND, claudication, leg edema, or exercise intolerance. Musculoskeletal: Denies any myalgias. Neurological: Denies any headache, blurred vision, numbness, weakness, tremor, tingling. Skin: Denies any rash, itching, hives, or bruising Physical Exam BP (!) 142/82 (BP Location: Left arm, Patient Position: Sitting) Pulse 98 Ht 149.9 cm (4' 11 ) Wt 72.1 kg (159 lb) BMI 32.11 kg/m?? Wt Readings from Last 3 Encounters: 03/27/25 72.1 kg (159 lb) 01/24/25 73.6 kg (162 lb 3.2 oz) 12/06/24 72.9 kg (160 lb 12.8 oz) General: Alert and oriented x3. No acute distress. HEENT: NC/AT. Mucous membranes moist. Oropharynx clear. Sclera clear. Neck: Supple. No masses or enlarged nodes. No JVP. Carotids with good upstrokes and no bruits. Lungs: Clear to Auscultation and Percussion. Heart: Regular rate and rhythm. No murmurs. No rubs. No gallops. Abdomen: Soft, nontender, and nondistended. Good bowel sounds. No hepatomegaly. No splenomegaly. Nomasses. Extremities: No cyanosis. No clubbing. No edema. DP +1. PT +1. EK03/27/25, NSR 98/min, PVC otherwise normal. Recent Lab Results: Lab Results Component Value Date NA 139 01/24/2025 K 4.9 01/24/2025 CL 100 01/24/2025 CO2 23 01/24/2025 BUN 20 01/24/2025 CRE 0.97 01/24/2025 CA 10.6 (H) 01/24/2025 GLU 129 (H) 01/24/2025 No results found for: TP , ALB , GLOB , SGOT , SGPT , ALKP , TBILI , DBILI No results found for: TROPTHS , CPK , CKMBINDEX No results found for: NTBNP No results found for: CHOL , CHLCRYS , FCHOL , HDL , LDL1 , LDL2 , LDL3 , LDL4 , LDLCAL , LDL , TRIG , FTRI , CHOLHDL , LDLD , LDLDIR HEMOGLOBIN A1C Date Value Ref Range Status 01/24/2025 6.1 (H) 4.3 - 5.6 % Final Comment: Normal 4.3-5.6% Prediabetes 5.7-6.4% Diagnostic for diabetes >6.5% No results found for: TSH , TSH3 Lab Results Component Value Date WBC 11.87 (H) 01/24/2025 HGB 15.6 01/24/2025 HCT 48.0 (H) 01/24/2025 PLT 265 01/24/2025 No results found for: INR , PTT Recent Test Results: 14-day monitor 07/09/21, sinus rhythm 43-128 and average 71 bpm. Patient had rare PAC and rare PVC Coronary CTA 12/27/21, 50-70% OM2, 25% pRCA Cardiac MR 02/03/22, no abnormal myocardial enhancement with preserved biventricular function. Echocardiogram 04/23/22, normal left ventricular size and function with EF 55 to 60%. No significant valve disease. Assessment: Cardiomyopathy: The patient by record had an episode of stress-induced cardiomyopathy in 2021 whichhas resolved. Her EKG today is normal. She will be referred to have an echocardiogram to assess herLV function and valvular function. She continues to be on irbesartan. Her blood pressure at home isbetter controlled. PAD: The patient is followed by vascular for PAD. She was advised to discuss with her PCP initiating statin therapy. Arrhythmia: The patient had a patch monitor in 2021 with rare PAC and rare PVC. No episodes of atrial fibrillation detected. This was reviewed with the patient. Hypertension: The patient's systolic blood pressure today is mildly elevated. Her blood pressure athome is better controlled. She is on amlodipine and irbesartan. She was counseled about low-salt diet. Hip surgery: The patient activity is limited due to her hip pain. Considering her prior cardiac history, she will be referred to have a Lexiscan study. If the stress test is normal then she may proceed with her hip surgery as planned. Plan: Continue present management Discussed with the PCP initiating statin therapy Echocardiogram Lexiscan study Counseled about diet and exercise Follow-up with PCP regularly Follow-up with cardiology as needed Thank you for this referral I personally spent a total of 60 minutes on the date of this encounter including face to face time and non-face time. This includes time spent on work such as documentation, chart review and care coordination. This note was generated with a voice recognition program. Please excuse any errors which may have been overlooked during review. Sometimes, these errors may affect the content or meaning of a given sentence Lisa Mcgowan MD documented in this encounter Plan of Treatment Upcoming Encounters Date Type Department Care Team (Latest Contact Info) Description 03/27/2025 Procedure Pass [facility] Echo [facility] [address] [place] [address] 04/25/2025 11:00 AM EST Appointment [facility] Card[facility] Stress [facility] [place] [address] Lisa Mcgowan MD [address] [place] [address] 04/25/2025 11:45 AM EST Appointment [facility] Cardiac Stress [facility] [address] [place] [address] Lisa Mcgowan MD [address] [place] [address] 05/02/2025 10:20 AM EST Pre-Admission Testing [facility] [address] [place] [id number] Juan A Redd MD [address] [place] [address] [place] [phone] [email or web address] 05/04/2025 1:30 PM EST Appointment [facility] [address] [place] [address] Lisa Mcgowan MD [address] [place] [address] 05/16/2025 Procedure Pass [facility] [address] [place] [address] 05/16/2025 2:45 PM EST Hospital Encounter [facility] [address] [place] [address] Juan A Redd MD [address] [place] [address] [place] [id number] [email or web address] 05/16/2025 2:45 PM EST - 05/16/2025 5:25 PM EST Surgery [facility] [address] [place] [address] Juan A Redd MD [address] [place] [place] [address] [email or web address] 06/26/2025 12:30 PM EDT Office Visit [facility] [address] [facility], [address] [place] [address] Juan A Redd MD [address] [place] [address] [email or web address] 08/14/2025 9:15 AM EDT Office Visit [facility] [address] [facility], [address] [place] [address] Juan A Redd MD [address] [place] [address] [email or web address] Scheduled Orders Name Type Priority Associated Diagnoses Orde r Schedule Adult Echo TTE Echocardiography Routine Dyspnea on exertion Expected: 03/27/2025, Expires: 03/27/2026 NC Myocardial Perfusion Pharmacologic Stress Multiple Nuclear Cardiology Routine Preoperative cardiovascular examination Expected: 03/27/2025, Expires: 03/27/2026 Scheduled Procedures Name Priority Associated Diagnoses Date/Ti me ARTHROPLASTY TOTAL HIP Primary osteoarthritis of left hip 05/16/2025 2:45 PM EST MODIFIER ARTHROPLASTY TOTAL HIP BARBARA Primary osteoarthritis of left hip 05/16/2025 2:45 PM EST documented as of this encounter Goals Goal Patient Goal Type Associated Problems Recent Progress Patient-Stated? Author Autogenera stuart Goal Care Plan Autogenerated Problem No Perla Terry Autojewell davidson Goal Care Plan Autogenerated Problem No Omar Tobias documented as of this encounter Procedures Procedure Name Priority Date/Time Associated Diagnosis Comments ECG 12-LEAD Routine 03/27/2025 1:15 PM EST Cardiomyopathy documented in this encounter Results * ECG 12-LEAD (03/27/2025 1:15 PM EST) Ventricular Rate EKG/MIN 98 BPM MUSE_NWH Atrial Rate 98 BPM MUSE_NWH WI Interval 130 ms MUSE_NWH QRS Duration 90 ms MUSE_NWH QT Interval 354 ms MUSE_NWH QTC Interval 451 ms MUSE_NWH P [place] 76 degrees MUSE_NWH R Wave [place] 1 degrees MUSE_NWH T [place] 45 degrees MUSE_NW 03/27/2025 1:15 PM EST Narrative MUSE_NW - 03/30/2025 5:18 PM EST SINUS RHYTHM OCCASIONAL PREMATURE VENTRICULAR COMPLEXES OTHERWISE NORMAL ECG WHEN COMPARED WITH ECG OF 28-MAR-2011 13:21, PREMATURE VENTRICULAR COMPLEXES ARE NOW PRESENT VENT. RATE HAS INCREASED BY 34 BPM us Lisa Mcgowan MD ECG ORDERABLES Final Result [place] documented in this encounter Visit Diagnoses Diagnosis Cardiomyopathy- Primary Other primary cardiomyopathies Preop cardiovascular exam Pre-operative cardiovascular examination Primary hypertension Unspecified essential hypertension Peripheral vascular disease Unspecified peripheral vascular disease Dyspnea on exertion Other dyspnea and respiratory abnormality Preoperative cardiovascular examination Pre-operative cardiovascular examination Primary osteoarthritis of left hip documented in this encounter Additional Health Concerns Active Problems Noted Date Diagnosed Date Autogenerated Problem 03/04/2025 Autogenerated Problem 03/27/2025 documented as of this encounter Care Teams Quiller Hand Relationship Specialty Start Date End Date Lala Moncada MD [address] [place] [address] PCP - General Internal Medicine 02/23/25 documented as of this encounter Additional Source Comments The information contained in this document represents components of the legal health record. It is not the complete legal health record.[facility]
--- NOTE | 2025-03-30 14:51 | A.OFFPC_ITS ---
Vital Signs 03/30/25 14:52 Height 4 ft 11.4 in Weight 157 lb 8 oz BMI 31.4 BP 162/60 H Blood Pressure Location Lt brachial Position Sitting Respiration 18 Pulse 99 Pulse Source Pulse Oximeter Temp Source Temporal Artery Scan Pulse Oximetry (%) 98 Oxygen Delivery Method Room Air Intake Visit Reasons: Hip Replacement Follow Up Front Desk Auxiliary Required: No Accompanied by: Self / Same As Patient Allergies vancomycin Allergy (Unknown, Verified 03/30/25 14:53) Redness of Skin tetracaine (TETRACAINE) Adverse Reaction (Unknown, Verified 03/30/25 14:53) CYSTITIS Medication List - Last Reconciled 03/30/25 by Lala Hyatt MD amlodipine 10 mg PO DAILY amoxicillin 500 mg PO ONCE PRN aspirin 81 mg PO DAILY brimonidine 0.2% 1 drp ophthalmic (eye) DAILY celecoxib 200 mg PO BID irbesartan 150 mg PO DAILY multivitamin with minerals (Hair,Skin and Nails tablet) 1 tab PO DAILY Tobacco use date assessed: 03/30/25 Fall risk assessment: No Falls in past year Last assessed Fall Risk: 03/30/25 Dental Screening Dental Screen Date: 03/30/25 Did you have a dental visit in the last 12 months?: Yes Did you have a dental problem in the last 6 months where you did not have access to dental care?: No Was dental information given to patient?: Patient has dentist HPI HPI Comments History of Present Illness Details The patient is a 70-year-old female with PMH of HTN, Takotsubo, fibromyalgia, Carpal tunnel syndrome, 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 The patient is scheduled for a hip replacement on May 16. She recently saw a customer advisor specialist for pre-operative clearance and has an echocardiogram scheduled for May 04 and a nuclear stress test scheduled for April 25 in [place]. The customer advisor specialist suggested starting a statin for claudication. The patient has hypertension and reports her blood pressure is still high despite taking amlodipine and irbesartan. She has experienced adverse effects from amlodipine 10 mg, including a burning sensation in her hands, and took it at night to mitigate this. She has a history of an adverse reaction to atenolol, which caused her blood pressure to drop, leading to disorientation. The patient reports disturbed sleep, with her watch indicating blood oxygen levels dropping below 80%. She has a sleep study scheduled for the of the month and had one recorded episode of snoring for 18 minutes. She reports significant weight gain, reaching approximately 178 pounds last April, and attributes her current hip issue to this. She had a tooth extraction today due to a chronic infection as part of her surgical clearance. [facility] Medical History Melanoma Blood pressure check Surgical History History of right hip replacement History of total left knee replacement (TKR) Status post reverse arthroplasty of right shoulder (~10/18/18) Social History Household Members: Spouse Alcohol intake: never Patient Tobacco Use Status: Never used Tobacco e-Cigarette/Vaping Use: Never Used Second Hand Smoke Exposure: No Substance Use Type: Marijuana service: No Current occupational status: retired Cognitive needs: Yes (Glasses) Hearing needs: No Vision needs: Yes (Glasses) Questionnaire Thrive Questionnaire Date Thrive assessed: 03/30/25 I am a: Patient What is your living situation today?: I have a steady place to live Within the past 12 months, did the food you bought not last and you didn't have the money to get more?: Never true Within the past 12 months, did you worry whether your food would run out before you got money to buy more?: Never true Do you have trouble paying for medicines?: No Do you have trouble getting transportation to medical appointments?: No Do you have trouble paying your heating and electricity bill?: No Do you have trouble taking care of your child, family member or friend?: No Do you have trouble with day-to-day activities such as bathing, preparing meals, shopping, managing finances, etc.?: Yes Are you currently unemployed and looking for a job?: No Are you interested in more education?: I choose not to answer this question Please select the resources that you would like help with: None Currently or been in a relationship where the following occur: I choose not to answer THRIVE Score: 0 CAR-7 AMB Questionnaire CAR-7 Date CAR - 7 assessed: 10/31/25 Source: Developed by Drs. Marty Jacob, Brittany Patel, Watson Chen and colleagues, with an educational violetta from [employer]. Review of Systems Const Details: per HPI. Physical exam (Primary Care) Vital Signs: Last Vital Signs Pulse 99 03/30/25 14:52 Resp 18 03/30/25 14:52 BP 162/60 H 03/30/25 14:52 Pulse Ox 98 03/30/25 14:52 Oxygen Delivery Method Room Air 03/30/25 14:52 BMI result Body Mass Index 31.4 Tobacco/Smoking Status: Tobacco use Status Tobacco use date assessed 03/30/25 03/30/25 14:59 Patient Tobacco Use Status Never used Tobacco 03/30/25 14:59 e-Cigarette/Vaping Use Never Used 03/30/25 14:59 Thrive Assessment: Date of Thrive Assessment Date Thrive assessed 03/30/25 03/30/25 14:59 Currently or been in a relationship where the following occur: I choose not to answer Const Other: Pertinent findings are in BOLD GENERAL APPEARANCE NAD, activity normal for age, well developed/ well nourished, no cyanosis, pallor, or diaphoresis. EYES lids/conjunctiva normal. EARS/NOSE/THROAT Mucous membranes moist, nares normal, lips/teeth normal uvula midline without oral pharyngeal erythema, exudate or swelling TMs normal bilaterally. No lymphangitis/lymphedema. HEAD/NECK normocephalic atraumatic, no facial trauma, neck is supple. RESPIRATORY respiratory effort normal, speaks in full sentences, no tripod position, no accessory muscle use. Lungs clear to auscultation without rhonchi, wheezes, rales CARDIAC Regular rate and rhythm, no edema. ABDOMINAL Soft, ND/NT. No evidence of fluid wave. No pulsatile masses on exam, rebound tenderness, Howard sign or pain over Mcburney's point. MUSCLES/EXTREMITIES No abnormal range of motion, no swelling. SKIN Warm, pink and dry. No rashes, dermatoses, petechiae or lesions. NEUROLOGICAL Speech is clear and appropriate. Normal level of consciousness. Gait and coordination are normal. 5/5 strength in all extremities. PSYCH Normal mood and affect. Judgement/competence is appropriate Coding Level of Care Code Est Pt Level 4 (20234) Diagnoses Primary hypertension I10 Hypertension type: primary hypertension Sleep-related hypoxia G47.34 Claudication I73.9 Pre-op evaluation Z01.818 Time Spent (min) 45 Assessment & Plan Assessment & Plan (1) HTN (hypertension): Code(s): I10 - Essential (primary) hypertension Category: Medical Qualifiers: Hypertension type: primary hypertension Qualified Code(s): I10 - Essential (primary) hypertension Plan: - The patient's blood pressure remains high (170) despite being on irbesartan 150 mg and amlodipine 10 mg. - She reports side effects of a burning sensation in her hands from amlodipine. - Though the patient inquired about reducing the amlodipine dose, it was recommended to continue the current dose as the blood pressure is still significantly elevated. - A third antihypertensive, carvedilol (Coreg) 3.125 mg twice daily, will be added to her regimen. - The patient reports a prior adverse reaction to atenolol causing hypotension and disorientation. - The potential improvement in blood pressure after treating her suspected sleep apnea was also discussed. - Follow-up in two months to re-assess blood pressure. (2) Sleep-related hypoxia: Code(s): G47.34 - Idiopathic sleep related nonobstructive alveolar hypoventilation Category: Medical Plan: - The patient reports disturbed sleep and concerning desaturations (blood oxygen below 80%) noted on her watch. - She has a sleep study scheduled for the of the month. - The potential for treating sleep apnea to improve her hypertension was discussed. (3) Claudication: Code(s): I73.9 - Peripheral vascular disease, unspecified Category: Medical Plan: - The patient has claudication, for which her customer advisor specialist has recommended a statin. - Atorvastatin 20 mg will be initiated. - The patient inquired about cilostazol (Celostazol) as a treatment option, noting a vascular surgeon had previously dismissed it. (4) Pre-op evaluation: Code(s): Z01.818 - Encounter for other preprocedural examination Category: Medical Plan: - The patient is scheduled for a hip replacement on May 16. - Cardiac clearance is being managed by her customer advisor specialist, with an echocardiogram scheduled on May 04 and a nuclear stress test on April 25. - It was decided not to interfere with the customer advisor specialist's orders to avoid delays or insurance complications. Plan I discussed the patient's persistently high blood pressure, which was 170/x in clinic today. We reviewed her current medications, irbesartan and amlodipine, and her reported side effects from amlodipine. Given the severity of her hypertension, I advised against lowering the amlodipine dose and instead recommended adding a third agent, carvedilol 3.125 mg twice daily. We noted her prior intolerance to atenolol. We also discussed the customer advisor specialist's recommendation to start a statin for her claudication, and I prescribed atorvastatin 20 mg. Regarding her upcoming hip surgery, I affirmed the plan to let her cardiology team manage the pre-operative cardiac testing to avoid any delays. I acknowledged her concerns about her sleep quality and desaturations and noted that her upcoming sleep study is an important step. We discussed that treating potential sleep apnea could also positively impact her blood pressure. I recommended she keep a log of her blood pressure readings at home. Follow-up is scheduled in two months, which will be after her surgery. Medications: New atorvastatin (Lipitor) 20 mg PO DAILY 30 tabs 3RF carvedilol must administer with a meal/food 3.125 mg PO BID 60 tabs 3RF
[2025-03-30 14:52] VITALS: BP 162/60; PULSE 99; RESP 18; O2SAT 98; BMI 31.4
--- OUTSIDE RECORDS SUMMARY | 2025-03-30 22:18 | XMS_ITS | Encounter Summary ---
Author Organization [facility] Address [address] [place] [address] [place] [phone] Phone Care Team Providers Care Floor Hand Name Role Phone Lala Moncada MD Primary Care Provider [phone] Encounter Details Date Type Department Care Team (Late st Contact Info) Description 03/03/2025 Procedure Pass [facility] PERIOPERATIVE DEPT [address] [place] [address] Social History Tobacco Use Types Packs/Day Years [...] AM EST documented as of this encounter Plan of Treatment Upcoming Encounters Date Type Department Care Team (Latest Contact Info) Description 03/27/2025 Procedure Pass [facility] [address] [place] [address] 04/25/2025 11:00 AM EST Appointment [facility] [address] [place] [address] [place] [address] [place] [address] 04/25/2025 11:45 AM EST Appointment [facility] [address] [place] [address] Ray Mcgowan MD [address] [place] [address] 05/02/2025 10:20 AM EST Pre-Admission Testing [facility] PRETESTING [address] [place] [address] Juan A Redd MD [address] [address] [email or web address] 05/04/2025 1:30 PM EST Appointment [facility] Echo Lab [address] [place] [address] Ray Mcgowan MD [address] [place] [phone] 05/16/2025 Procedure Pass [facility] PERIOPERATIVE DEPT [address] [place] [address] 05/16/2025 2:45 PM EST Hospital Encounter [facility] PERIOPERATIVE DEPT [address] [place] [address] Juan A Redd MD [address] [address] [email or web address] 05/16/2025 2:45 PM EST - 05/16/2025 5:25 PM EST Surgery [facility] PERIOPERATIVE DEPT [address] [place] [address] Juan A Redd MD [address] [place] [address] [email or web address] ARTHROPLASTY TOTAL HIP 06/26/2025 12:30 PM EDT Office Visit [facility] [address] [facility] [address], [facility] [address] [place] [address] Juan A Redd MD [address] [place] [address] [email or web address] 08/14/2025 9:15 AM EDT Office Visit [facility] 2013 [facility] [address], [address] [address] Juan A Redd MD [address] [place] [address] [email or web address] Scheduled Procedures Name Priority Associated Diagnoses Date/Ti me ARTHROPLASTY TOTAL HIP Primary osteoarthritis of left hip 05/16/2025 2:45 PM EST MODIFIER ARTHROPLASTY TOTAL HIP BARBARA Primary osteoarthritis of left hip 05/16/2025 2:45 PM EST documented as of this encounter Goals Goal Patient Goal Type Associated Problems Recent Progress Patient-Stated? Author Autogenerat ed Goal Care Plan Autogenerated Problem No [employer], Admin documented as of this encounter Visit Diagnoses Not on filedocumented in this encounter Additional Health Concerns Active Problems Noted Date Diagnosed Date Autogenerated Problem 03/04/2025 documented as of this encounter Care Teams Floor Hand Relationship Specialty Start Date End Date Lala Moncada MD [address] [place] [id number] PCP - General Internal Medicine 02/23/25 documented as of this encounter Additional Source Comments The information contained in this document represents components of the legal health record. It is not the complete legal health record.[facility]
--- OUTSIDE RECORDS SUMMARY | 2025-03-30 22:18 | XMS_ITS | Clinical Summary ---
Author Organization [facility] Address [address] [place] [address] Phone Care Team Providers Care Gold Buyer Name Role Phone Lala Moncada MD Primary Care Provider [phone]- [phone] Allergies Active Allergy Reactions Criticality Noted Date Comments Fluoxetine 06/05/2021 Other reaction(s): back spasms Tetracycline Other (See Comments) Low 04/15/2011 cystitis Vancomycin 06/05/2021 red man syndromw Medications irbesartan (AVAPRO) 150 MG tablet irbesartan 150 mg tablet TAKE 1 TABLET BY MOUTH EVERY DAY 1 Active celecoxib (CELEBREX) 200 MG capsule celecoxib 200 mg capsule TAKE 1 CAPSULE BY MOUTH TWICE A DAY Active aspirin 81 MG EC tablet Take 81 mg by mouth daily. Active brimonidine (ALPHAGAN) 0.2 % ophthalmic solution Place 1 drop into each eye 2 (two) times a day. 5 Active amLODIPine (NORVASC) 10 MG tablet Take 1 tablet by mouth every morning. 5 Active amoxicillin (AMOXIL) 875 MG tablet Take 875 mg by mouth 2 (two) times a day. 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 Major depression, single episode 02/08/2025 GERD (gastroesophageal reflux disease) Hypertension 02/08/2025 PAD (peripheral artery disease) 02/08/2025 CT (myocardial infarction) 02/08/2025 Encounters Date Type Department Care Team Description 03/27/2025 1:40 PM EST Office Visit [facility], Cardiology [address] [place] [address] Lisa Mcgowan MD Cardiomyopathy (Primary Dx); Preop cardiovascular exam; Primary hypertension; Peripheral vascular disease; Dyspnea on exertion; Preoperative cardiovascular examination 03/03/2025 Procedure Pass [facility] PERIOPERATIVE DEPT [address] [place] [address] 03/03/2025 Hospital Encounter [facility] PERIOPERATIVE DEPT [address] [place] [address] Juan A Redd MD 02/24/2025 Telephone [facility] 2013 [facility], [address] [address] Keyla Owens CNP 02/24/2025 Telephone [facility], Cardiology 2013 [facility] - [address] [place] [address] Shweta uHtson, central office equipment installer on Treatment Plan (Cardiac risk assessment for Ortho surgery) 02/22/2025 Orders Only [facility] [address] [place] [address] Dago Moss MD 02/22/2025 Ancillary Orders [facility] [address] [place] [address] Dago Moss MD 02/16/2025 Telephone [facility] 2013 [facility], [address] [address] Princess Hamilton 02/02/2025 11:59 PM EDT Anesthesia Event [facility] PERIOPERATIVE DEPT [address] [place] [address] Keyla Medina CNP [place], Lauren Elizabeth, CNP 01/24/2025 4:38 PM EDT - 01/24/2025 11:59 PM EDT Hospital Encounter [facility] Lab Main [address] [place] [address] Keyla Owens CNP Discharge Disposition: Home or Self Care 01/24/2025 2:12 PM EDT - 01/24/2025 4:37 PM EDT Hospital Encounter [facility] Phleb [id number] [facility], [address] [place] [address] Keyla Owens CNP Discharge Disposition: Home or Self Care 01/24/2025 1:00 PM EDT Office Visit [facility] 2013 [facility], [address] [place] [address] Keyla Owens CNP Preop testing (Primary Dx); Primary osteoarthritis of left hip 01/24/2025 Transcribe Orders [facility] Lab Main [address] [place] [address] Keyla Owens CNP 01/24/2025 Orders Only [facility] 2013 [facility], [address] [place] [address] Princess Hamilton Pre-op testing (Primary Dx) 01/23/2025 Documentation [facility] 2013 [facility], [address] [place] [address] Keyla Owens CNP 01/13/2025 Telephone [facility] [address] [place] [address] Tracie Laws MD, MPH Triage 01/06/2025 1:00 PM EDT Office Visit [facility] [address] [place] [address] Tracie Laws MD, MPH Claudication (Primary Dx) 01/03/2025 10:15 AM EDT Evaluation [facility] [address] [place] [address] Atherosclerosis of burns paiute arteries of extremity with intermittent claudication (Primary Dx) from Last 3 Months Family History Medical History Relation Comments Diabetes Other Relation Status Comments Other Social History Tobacco Use Types Packs/Day Years Used Date Smoking Tobacco: Never Smokeless Tobacco: Never Tobacco Cessation:Counseling Given: Not Answered Alcohol Use Standard Drinks/Week Comments Not Currently [...] Orientation Straight 06/12/2021 8: 24 AM EST Last Filed Vital Signs Vital Sign Reading Time Taken Comments Blood Pressure 142/82 03/27/2025 1:19 PM EST Pulse 98 03/27/2025 1:19 PM EST Temperature 35.8 C (96.5 F) 06/05/2021 11:16 AM EST Respiratory Rate 18 01/24/2025 1:16 PM EDT Oxygen Saturation 98% 01/24/2025 1:16 PM EDT Inhaled Oxygen Concentration - - Weight 72.1 kg (159 lb) 03/27/2025 1:19 PM EST Height 149.9 cm (4' 11 ) 03/27/2025 1:19 PM EST Body Mass Index 32.11 03/27/2025 1:19 PM EST Plan of Treatment Upcoming Encounters Date Type Department Care Team (Latest Contact Info) Description 03/27/2025 Procedure Pass [facility] Lab [address] [place] [address] 04/25/2025 11:00 AM EST Appointment [facility] Card[facility] Stress Clinic [address] [place] [address] Lisa Mcgowan MD [address] [place] [address] [email or web address] 04/25/2025 11:45 AM EST Appointment [facility] Card[facility] [address] [place] [address] Lisa Mcgowan MD [address] [place] [address] [email or web address] 05/02/2025 10:20 AM EST Pre-Admission Testing [facility] PRETESTING [address] [place] [address] Juan A Redd MD [address] [place] [address] [email or web address] 05/04/2025 1:30 PM EST Appointment [facility] Lab [address] [place] [address] Lisa Mcgowan MD [address] [place] [address] [email or web address] 05/16/2025 Procedure Pass [facility] PERIOPERATIVE DEPT [address] [place] [address] 05/16/2025 2:45 PM EST Hospital Encounter [facility] PERIOPERATIVE DEPT [address] [place] [address] Juan A Redd MD [address] [place] [address] [email or web address] 05/16/2025 2:45 PM EST - 05/16/2025 5:25 PM EST Surgery [facility] PERIOPERATIVE DEPT [address] [place] [address] Juan A Redd MD [address] [place] [address] [email or web address] ARTHROPLASTY TOTAL HIP 06/26/2025 12:30 PM EDT Office Visit [facility] 2013 [facility], [address] [place] [address] Juan A Redd MD [address] [place] [address] [email or web address] 08/14/2025 9:15 AM EDT Office Visit [facility] 2013 [facility], [address] [place] [address] Juan A Redd MD [address] [place] [address] [email or web address] Scheduled Procedures Name Priority Associated Diagnoses Date/Ti me ARTHROPLASTY TOTAL HIP Primary osteoarthritis of left hip 05/16/2025 2:45 PM EST MODIFIER ARTHROPLASTY TOTAL HIP BARBARA Primary osteoarthritis of left hip 05/16/2025 2:45 PM EST Health Maintenance Due Date Last Done Comments LIPID PANEL 1955 DEPRESSION SCREENING 1967 HEPATITIS C SCREENING 1973 MAMMOGRAM 1995 COLOGUARD 02/20/2000 COLONOSCOPY 02/20/2000 COLORECTAL CANCER SCREENING 02/20/2000 FIT TEST 02/20/2000 FOBT 02/20/2000 SIGMOIDOSCOPY 02/20/2000 VIRTUAL COLONOSCOPY 02/20/2000 PNEUMOCOCCAL VACCINES (50+ years) (1 of 1 - PCV) 2005 ZOSTER VACCINES (1 of 2) 2005 OSTEOPOROSIS SCREENING INITIAL (ONE-TIME) 02/20/2020 Adult Td,Tdap Booster 09/07/2021 09/08/2011 INFLUENZA VACCINE (#1) 2024 COVID-19 VACCINE (2024- season) 2024 08/07/2020, 08/07/2020, 07/10/2020, Additional history exists BLOOD PRESSURE 09/25/2025 03/27/2025 CREATININE LEVEL 01/24/2026 01/24/2025, 03/28/2011 POTASSIUM LEVEL 01/24/2026 01/24/2025, 03/21, 03/28/2011 RSV VACCINE (1 - 1-dose 75+ series) 2030 SMOKING STATUS SCREENING (Once After 26 Yrs) Completed 01/24/2025 HEPATITIS A VACCINES Aged Out No long er eligible based on patient's age to complete this topic HIB VACCINES Aged Out No longer eligi ble based on patient's age to complete this topic MENINGOCOCCAL VACCINES (ACWY) Aged Out No longer eligible based on patient's age to complete this topic MENINGOCOCCAL VACCINES (B) Aged Out N o longer eligible based on patient's age to complete this topic Goals Goal Patient Goal Type Associated Problems Recent Progress Patient-Stated? Author Autogenera davidson Goal Care Plan Autogenerated Problem No Mara, Perla davidson Goal Care Plan Autogenerated Problem No Omar Tobias [employer] Devices Not on file Procedures Procedure Name Priority Date/Time Associated Diagnosis Comments ECG 12-LEAD Routine 03/27/2025 1:15 PM EST Cardiomyopathy OUTSIDE IMAGING 02/22/2025 OUTSIDE LAB 02/21/2025 MRSA/MSSA PRE-OP PCR Routine 01/24/2025 4:38 PM EDT Pre-op testing BASIC METABOLIC PANEL (BMP) Routine 01/24/2025 2:12 PM EDT Preop testing HEMOGLOBIN A1C Routine 01/24/2025 2:12 PM EDT Preop testing CBC Routine 01/24/2025 2:12 PM EDT Preop testing US LOWER EXTREMITY ARTERIES (EDIN) PHYSIO COMPLETE BILAT Routine 01/03/2025 10:36 AM EDT Atherosclerosis of burns paiute arteries of extremity with intermittent claudication from Last 3 Months Results * ECG 12-LEAD (03/27/2025 1:15 PM EST) Ventricular Rate EKG/MIN 98 BPM [facility] Atrial Rate 98 BPM [facility] NJ Interval 130 ms [facility] QRS Duration 90 ms [facility] QT Interval 354 ms [facility] QTC Interval 451 ms [facility] P [place] 76 degrees [facility] R Wave [place] 1 degrees [facility] T Wave [place] 45 degrees [facility] 03/27/2025 1:15 PM EST Narrative [facility] - 03/30/2025 5:18 PM EST SINUS RHYTHM OCCASIONAL PREMATURE VENTRICULAR COMPLEXES OTHERWISE NORMAL ECG WHEN COMPARED WITH ECG OF 28-MAR-2011 13:21, PREMATURE VENTRICULAR COMPLEXES ARE NOW PRESENT VENT. RATE HAS INCREASED BY 34 BPM us Lisa Mcgowan MD ECG ORDERABLES Final Result [facility] * Outside Imaging Report Only (02/22/2025) us Scanning Interface Provider IMG XR CHEST Anna l Result * Outside Lab (Non-MGB) (02/21/2025) us Scanning Interface Provider LAB BLOOD BKR ORDERA BLES Final Result * (ABNORMAL) MRSA/MSSA PRE-OP PCR (01/24/2025 4:38 PM EDT) [facility] MRSA PCR SCREEN MRSA NEGATIVE MRSA NEGATIVE [facility] Staph Aureus PCR Screen SA POSITIVE(A) SA NEGATIVE [facility] Nasal (Nasal) 01/24/2025 4:3 8 PM EDT 01/24/2025 4:51 PM EDT us Keyla Owens PRECISION GRINDER EXTERNAL LAB GENERAL ORDERABLES Anna l Result [facility] [address] [place] [address] * (ABNORMAL) CBC (01/24/2025 2:12 PM EDT) [facility] WBC 11.87(H) 4.00 - 11.00 K/uL [facility] RBC 5.62(H) 4.00 - 5.20 M/uL [facility] HGB 15.6 12.0 - 16.0 g/dL [facility] HCT 48.0(H) 36.0 - 46.0 % [facility] PLT 265 150 - 450 K/uL [facility] MCV 85.4 80.0 - 100.0 fL [facility] MCH 27.8 27.0 - 31.0 pg [facility] MCHC 32.5 32.0 - 36.0 g/dL [facility] RDW 14.0 11.5 - 14.5 % [facility] MPV 12.1(H) 8.4 - 12.0 fL [facility] NRBC 0.00 0.00 /100 WBCs [facility] 01/24/2025 2:12 PM EDT 01/24/2025 4:20 PM EDT [facility] LAB BLOOD BKR ORDERABLES Fi nal Result Performing Organization Address [facility] Co de Phone Number [facility] [address] [place] [address] * (ABNORMAL) Hemoglobin A1c (01/24/2025 2:12 PM EDT) HEMOGLOBIN A1C 6.1(H) 4.3 - 5.6 % [facility] Comment: Normal 4.3-5.6% Prediabetes 5.7-6.4% Diagnostic for diabetes >6.5% CALC MEAN BLD GLUC 128 mg/dL [facility] 01/24/2025 2:12 PM EDT 01/24/2025 4:19 PM EDT [facility] LAB BLOOD BKR ORDERABLES Fi nal Result Performing Organization Address [facility] de Phone Number [facility] [address] [place] [address] * (ABNORMAL) Basic metabolic panel (01/24/2025 2:12 PM EDT) SODIUM 139 136 - 145 mmol/L [facility] CHLORIDE 100 95 - 106 mmol/L [facility] POTASSIUM 4.9 3.5 - 5.2 mmol/L [facility] CO2 23 20 - 31 mmol/L [facility] BUN 20 9 - 23 mg/dL [facility] CREATININE 0.97 0.50 - 1.30 mg/dL [facility] GLUCOSE 129(H) 74 - 106 mg/dL [facility] CALCIUM 10.6(H) 8.7 - 10.4 mg/dL [facility] EGFR 63 >60 mL/min/1.7 3m2 [facility] Comment:Estimated glomerular filtration rate calculated using the CKD-EPI refit equation. ANION GAP 16 3 - 17 mmol/L [facility] 01/24/2025 2:12 PM EDT 01/24/2025 4:19 PM EDT Keyla Owens PRECISION GRINDER EXTERNAL LAB BLOOD BKR ORDERABLES Fi nal Result [facility] [address] [place] [address] from Last 3 Months Additional Health Concerns Active Problems Noted Date Diagnosed Date Autogenerated Problem 03/04/2025 Autogenerated Problem 03/27/2025 Insurance MEDICARE PART A & B Member Subscriber Plan / Payer (Ef fective 2020-Present) Name:Asiya Chavez Member ID:[id number] Relation to Subscriber:Self Name:Asiya Chavez Subscriber ID:[id number] Payer ID:[id number] Group ID:Not on file Type:Medicare Address: [facility] [employer] [facility] [facility] [address] [facility] [place] [address] [place] BLUE REPLACEMENT MEDICARE PART A & B [id number] [place] [address] MEDICARE PPO BLUE REPLACEMENT MEDICARE PART A & B [facility] MEDICARE PPO BLUE REPLACEMENT MEDICARE PART A & B MEDICARE PPO BLUE REPLACEMENT MEDICARE PART A & B MEDICARE PPO BLUE REPLACEMENT MEDICARE PART A & [place] RE[place] MEDICARE PART A & B [facility] MEDICARE PPO BLUE REPLACEMENT MEDICARE PART A & B [facility] MEDICARE PPO BLUE REPLACEMENT MEDICARE PART A & B Member Subscriber Plan / Payer (Ef fective 2020-Present) Name:Asiya Chavez Member ID:[id number] Relation to Subscriber:Self Name:Asiya Chavez Subscriber ID:[id number] Payer ID:[id number] Group ID:Not on file Type:Medicare Address: [employer] [address] [place] [address] [place] [address] MEDICARE PPO BLUE REPLACEMENT MEDICARE PART A & B Member Subscriber Plan / Payer ( fective 2020-Present) Name:Asiya Chavez Member ID:[id number] Relation to Subscriber:Self Name:Asiya Chavez Tj Subscriber ID:[id number] Payer ID:[id number] Group ID:Not on file Type:Medicare Address: [employer] [address] [place] [address] [place] [address] MEDICARE PPO BLUE REPLACEMENT Care Teams Gold Buyer Relationship Specialty Start Date End Date Lala Moncada MD [address] [place] [address] PCP - General Internal Medicine 02/23/25 Additional Source Comments The information contained in this document represents components of the legal health record. It is not the complete legal health record.[facility]
--- OUTSIDE RECORDS SUMMARY | 2025-03-30 22:18 | XMS_ITS | Encounter Summary ---
Author Organization [facility] Address [address] [place] [address] Phone Care Team Providers Care Coagulating Operator Name Role Phone Joy Diallo MD Primary Care Provider Lala Moncada MD Primary Care Provider [phone]- [phone] Encounter Details Date Type Department Care Team (Late st Contact Info) Description 01/24/2025 Transcribe Orders [facility] Lab Main [address] [place] [address] Keyla Owens, AUTOMOBILE SPRING REPAIRER [address] [facility] [address] [place] [address] [email or web address] Social History Tobacco Use Types Packs/Day Years [...] (Latest Contact Info) Description 03/27/2025 Procedure Pass [facility] Echo Lab [address] [place] [address] 04/25/2025 11:00 AM EST Appointment [facility] Cardiac Stress Clinic [facility] [place] [address] Ray Mcgowan MD [address] [place] [address] 04/25/2025 11:45 AM EST Appointment [facility] Cardiac Stress Clinic [address] [place] [address] Ray Mcgowan MD [address] [place] [address] 05/02/2025 10:20 AM EST Pre-Admission Testing [facility] PRETESTING [address] [place] [address] Juan A Redd MD [address] [address] [email or web address] 05/04/2025 1:30 PM EST Appointment [facility] Echo Lab [address] [place] [address] Ray Mcgowan MD [address] [place] [address] 05/16/2025 Procedure Pass [facility] PERIOPERATIVE DEPT [address] [place] [address] 05/16/2025 2:45 PM EST Hospital Encounter [facility] PERIOPERATIVE DEPT [address] [place] [address] Juan A Redd MD [address] [place] [address] [email or web address] 05/16/2025 2:45 PM EST - 05/16/2025 5:25 PM EST Surgery [facility] PERIOPERATIVE DEPT [address] [place] [address] Juan A Redd MD [address] [place] [address] [email or web address] ARTHROPLASTY TOTAL HIP 06/26/2025 12:30 PM EDT Office Visit [facility] [address] [facility], [address] [address] Juan A Redd MD [address] [place] [address] [email or web address] 08/14/2025 9:15 AM EDT Office Visit [facility] [address] [facility], [address] [address] Juan A Redd MD [address] [place] [address] [email or web address] Scheduled Procedures Name Priority Associated Diagnoses Date/Ti me ARTHROPLASTY TOTAL HIP Primary osteoarthritis of left hip 05/16/2025 2:45 PM EST MODIFIER ARTHROPLASTY TOTAL HIP BARBARA Primary osteoarthritis of left hip 05/16/2025 2:45 PM EST documented as of this encounter Visit Diagnoses Not on filedocumented in this encounter Care Teams Coagulating Operator Relationship Specialty Start Date End Date Joy Diallo MD [address] [place] [address] PCP - General 06/12/21 02/22/25 Lala Moncada MD [address] [place] [address] PCP - General Internal Medicine 02/23/25 documented as of this encounter Additional Source Comments The information contained in this document represents components of the legal health record. It is not the complete legal health record.[facility]
--- OUTSIDE RECORDS SUMMARY | 2025-03-30 22:18 | XMS_ITS | Encounter Summary ---
Author Organization [facility] Address [address] [place] [address] Phone Care Team Providers Care Human Resource Officer Name Role Phone Joy Diallo MD Primary Care Provider Lala Moncada MD Primary Care Provider [phone]- [phone] Encounter Details Date Type Department Care Team (Late st Contact Info) Description 07/04/2021 Procedure Pass [facility] EKG [address] [place] [address] Social History Tobacco Use Types Packs/Day Years Used Date Smoking Tobacco: Never Smokeless Tobacco: Never Alcohol Use Standard Drinks/Week Comments Not Currently 0 (1 standard drink = 0.6 oz pur e alcohol) Comments Unknown Sex and Gender Information Value Date Recorded Sex Assigned at Female 06/12/2021 8:24 AM EST Legal Sex Female 6:02 PM EST Gender Identity Female 06/12/2021 8:24 AM EST Sexual Orientation Straight 06/12/2021 8: 24 AM EST documented as of this encounter Plan of Treatment Upcoming Encounters Date Type Department Care Team (Latest Contact Info) Description 03/27/2025 Procedure Pass [facility] Echo Lab [address] [place] [address] 04/25/2025 11:00 AM EST Appointment [facility] Cardiac Stress Clinic [address] [place] [address] Ray Mcgowan MD [address] [place] [address] [place] [address] 04/25/2025 11:45 AM EST Appointment [facility] Cardiac Stress Clinic [address] [place] [address] Ray Mcgowan MD [address] [place] [address] 05/02/2025 10:20 AM EST Pre-Admission Testing [facility] PRETESTING [address] [place] [address] Juan A Redd MD [address] [place] [address] [email or web address] 05/04/2025 1:30 PM EST Appointment [facility] Echo Lab [address] [place] [address] Ray Mcgowan MD [address] [place] [address] [email or web address] 05/16/2025 Procedure Pass [facility] PERIOPERATIVE DEPT [address] [place] [address] 05/16/2025 2:45 PM EST Hospital Encounter [facility] PERIOPERATIVE DEPT [address] [place] [address] Juan A Redd MD [address] [place] [place] [address] PRADEEP@[email or web address] 05/16/2025 2:45 PM EST - 05/16/2025 5:25 PM EST Surgery [facility] PERIOPERATIVE DEPT [address] [place] [address] Juan A Redd MD [address] [place] [address] PRADEEP@[email or web address] ARTHROPLASTY TOTAL HIP 06/26/2025 12:30 PM EDT Office Visit [facility] 2013 [facility], [address] [place] [address] Juan A Redd MD [address] [place] [address] [email or web address]@[email or web address] 08/14/2025 9:15 AM EDT Office Visit [facility] 2013 [facility], [address] [place] [address] Juan A Redd MD [address] [place] [address] [email or web address] Scheduled Procedures Name Priority Associated Diagnoses Date/Ti me ARTHROPLASTY TOTAL HIP Primary osteoarthritis of left hip 05/16/2025 2:45 PM EST MODIFIER ARTHROPLASTY TOTAL HIP BARBARA Primary osteoarthritis of left hip 05/16/2025 2:45 PM EST documented as of this encounter Visit Diagnoses Not on filedocumented in this encounter Care Teams Human Resource Officer Relationship Specialty Start Date End Date Joy Diallo MD [address] [place] [address] PCP - General 06/12/21 02/22/25 Lala Moncada MD [address] [place] [address] PCP - General Internal Medicine 02/23/25 documented as of this encounter Additional Source Comments The information contained in this document represents components of the legal health record. It is not the complete legal health record.[facility]
--- OUTSIDE RECORDS SUMMARY | 2025-03-30 22:18 | XMS_ITS | Patient Health Record ---
Author Organization [facility] Address [address] [place] [address] Care Team Providers Care Music Therapist [employer] Name Role Phone Triston CLEMENTE, Lorrie Primary Care Provider Gloria Jaffe Unavailable [phone] Allergies Allergen (clinical drug ingredient) Drug/Non Drug [...] Status Risk Notes Problem Postmenopausal atrophic vaginitis (28031786) Postmenopausal atrophic vaginitis (N95.2) Active confirmed Problem Essential hypertension (12063016) Essential (primary) hypertension (I10) Active confirmed Problem Major depression, single episode (74827891) Major depressive disorder, single episode, unspecified (F32.9) Active confirmed Problem History of malignant melanoma of the skin (422685010386) Personal history of malignant melanoma of skin (Z85.820) Active confirmed Problem Menopausal symptom (14608485) Symptomatic menopausal or female climacteric states (627.2) Active confirmed Major Plan Of Treatment Pending Test Test Name Order Date THIN PREP,HPV,KELLI IF HPV+ (>29YR)(SCRN) 07/01/2017 MM Digital Mammo Screening 07/01/2017 Insurance Providers Payer Name Payer Address Payer Phone Subscriber Number Group Number Insured Name Patient Relationship to Insured Coverage Start Date Coverage End Date [facility] [address] [place] [address] [id number] CHAVA DUNCAN Self - patient is the insured Medical (General) History Medical History History ICD Code Essential (primary) hypertension I10 Personal history of malignant melanoma o f skin Z85.820 Major depressive disorder, single episod e, unspecified F32.9 Melanoma Unspecified osteoarthritis, unspecified site M19.90 Gallbladder disease Surgical History Surgery Date(Month/Year) colposcopy 1976 Removal of Melanoma Colonoscopy Bilateral Knee Replacements 04/15/11 Left Knee Arthroscopy x 3 Tonsillectomy 1960 Right Hip Replacement 06/26/04 Hospitalization History Reason Date(Month/Year) See Surgical Hx
--- OUTSIDE RECORDS SUMMARY | 2025-03-30 22:18 | XMS_ITS | Encounter Summary ---
Author Organization [facility] Address [address] [place] [address] Phone Care Team Providers Care Supervisor Doping Name Role Phone Joy Diallo MD Primary Care Provider Lala Mocnada MD Primary Care Provider [phone]- [phone] Encounter Details Date Type Department Care Team (Late st Contact Info) Description 08/29/2021 Telephone [facility] - ([facility]) Primary Care [address] [address] Mayela [email or web address] Social History Tobacco Use Types Packs/Day Years [...] 03/27/2025 Procedure [facility] [address] [place] [address] 04/25/2025 11:00 AM EST Appointment [facility] [address] [place] [address] Ray Mcgowan MD [address] [place] [address] 04/25/2025 11:45 AM EST Appointment [facility] [address] [place] [address] Ray Mcgowan MD [address] [place] [address] 05/02/2025 10:20 AM EST Pre-Admission Testing [facility] PRETESTING [address] [place] [id number] Juan A Redd MD [address] [place] [address] [place] [address] [email or web address] 05/04/2025 1:30 PM EST Appointment [facility] Echo Lab [address] [place] [address] Ray Mcgowan MD [address] [place] [address] 05/16/2025 Procedure Pass [facility] PERIOPERATIVE DEPT [address] [place] [address] 05/16/2025 2:45 PM EST Hospital Encounter [facility] PERIOPERATIVE DEPT [address] [place] [address] Juan A Redd MD [address] [place] [place] [address] [email or web address] 05/16/2025 2:45 PM EST - 05/16/2025 5:25 PM EST Surgery [facility] PERIOPERATIVE DEPT [address] [place] [address] Juan A Redd MD [address] [place] [place] [address] [email or web address] ARTHROPLASTY TOTAL HIP 06/26/2025 12:30 PM EDT Office Visit [facility] [address] [facility], [address] [place] [address] Juan A Redd MD [address] [place] [place] [address] [email or web address] 08/14/2025 9:15 AM EDT Office Visit [facility] [address] [facility], [address] [place] [address] Juan A Redd MD [address] [place] [address] [email or web address] Scheduled Procedures Name Priority Associated Diagnoses Date/Ti me ARTHROPLASTY TOTAL HIP Primary osteoarthritis of left hip 05/16/2025 2:45 PM EST MODIFIER ARTHROPLASTY TOTAL HIP BARBARA Primary osteoarthritis of left hip 05/16/2025 2:45 PM EST documented as of this encounter Visit Diagnoses Not on filedocumented in this encounter Care Teams Supervisor Doping Relationship Specialty Start Date End Date Joy Diallo MD [address] [place] [address] PCP - General 06/12/21 02/22/25 Lala Moncada MD [address] [place] [address] PCP - General Internal Medicine 02/23/25 documented as of this encounter Additional Source Comments The information contained in this document represents components of the legal health record. It is not the complete legal health record.[facility]
--- OUTSIDE RECORDS SUMMARY | 2025-03-30 22:18 | XMS_ITS | Encounter Summary ---
Author Organization [facility] Address [address] [place] [address] Phone Care Team Providers Care Hyperbaric Tech Name Role Phone Lala Moncada MD Primary Care Provider [phone]- [phone] Reason for Visit * Auth/Cert (Routine) Specialty Diagnoses / Procedures Referred By Duyen nielson Referred To Contact Diagnoses Primary osteoarthritis of left hip M16.12 Procedures MT TOTAL HIP ARTHROPLASTY ARTHROPLASTY TOTAL HIP MODIFIER ARTHROPLASTY TOTAL HIP Juan A Akins MD [address] [place] [address] Phone: tel: fax: mailto:[email or web address] Referral ID Status Reason Start Date Expiration Date Visits Re quested Visits Authorized [id number] 01/06/2025 1 1 Encounter Details Date Type Department Care Team (Late st Contact Info) Description 03/03/2025 Hospital Encounter [facility] PERIOPERATIVE DEPT [address] [place] [address] Juan A Redd MD [address] [place] [address] [email or web address] Social History Tobacco Use Types Packs/Day Years [...] (Latest Contact Info) Description 03/27/2025 Procedure Pass [facility] Echo Lab [address] [place] [address] 04/25/2025 11:00 AM EST Appointment [facility] [address] [place] [address] Ray Mcgowan MD [address] [place] [address] 04/25/2025 11:45 AM EST Appointment [facility] [address] [place] [address] Ray Mcgowan MD [address] [place] [address] 05/02/2025 10:20 AM EST Pre-Admission Testing [facility] PRETESTING [address] [place] [address] Juan A Redd MD [address] [place] [address] PRADEEP@[email or web address] 05/04/2025 1:30 PM EST Appointment [facility] Echo Lab [address] [place] [address] Ray Mcgowan MD [address] [facility] [place] [address] [email or web address] 05/16/2025 Procedure Pass [facility] PERIOPERATIVE DEPT [address] [place] [address] 05/16/2025 2:45 PM EST Hospital Encounter [facility] PERIOPERATIVE DEPT [address] [place] [address] Juan A Redd MD [address] [place] [place] [address] [email or web address] 05/16/2025 2:45 PM EST - 05/16/2025 5:25 PM EST Surgery [facility] PERIOPERATIVE DEPT [address] [place] [address] Juan A Redd MD [address] [place] [address] [email or web address] ARTHROPLASTY TOTAL HIP 06/26/2025 12:30 PM EDT Office Visit [facility] 2013 [facility], [address] [address] Juan A Redd MD [address] [place] [address] [email or web address] 08/14/2025 9:15 AM EDT Office Visit [facility] 2013 [facility], [address] [address] Juan A Redd MD [address] [place] [address] [email or web address] Scheduled Procedures Name Priority Associated Diagnoses Date/Ti me ARTHROPLASTY TOTAL HIP Primary osteoarthritis of left hip 05/16/2025 2:45 PM EST MODIFIER ARTHROPLASTY TOTAL HIP BARBARA Primary osteoarthritis of left hip 05/16/2025 2:45 PM EST documented as of this encounter Visit Diagnoses Not on filedocumented in this encounter Care Teams Hyperbaric Tech Relationship Specialty Start Date End Date Lala Moncada MD [address] [place] [address] PCP - General Internal Medicine 02/23/25 documented as of this encounter Additional Source Comments The information contained in this document represents components of the legal health record. It is not the complete legal health record.[facility]
== END 2025-03-30 15:30 | disposition home or self-care (01) ==
LOC: HO.HMCH 14:47
PROVIDERS: Visit Provider Internal Medicine
DX: I10 Essential (primary) hypertension (principal); G47.34 Idiopathic sleep related nonobstructive alveolar hypoventilation; I73.9 Peripheral vascular disease, unspecified; Z01.818 Encounter for other preprocedural examination

== ENCOUNTER → 2025-03-30 14:46 | Outpatient (BNVA) | payer MEDICARE, SELFPAY | PROVIDERS: Visit Provider Internal Medicine | DX: Z01.818 Encounter for other preprocedural examination (principal); I10 Essential (primary) hypertension; G47.34 Idiopathic sleep related nonobstructive alveolar hypoventilation; I73.9 Peripheral vascular disease, unspecified | CPT/HCPCS: 99212 ==

== ENCOUNTER → 2025-04-03 13:30 | Outpatient (BNV) | payer MEDICARE, SELFPAY | PROVIDERS: Visit Provider Radiology Diagnostic Radiology | DX: E28.39 Other primary ovarian failure (principal) | CPT/HCPCS: 77080 ==

== ENCOUNTER 2025-04-03 13:51 | Outpatient (REF) | payer MEDICARE, SELFPAY ==
--- NOTE | ~2025-04-03 | MM_ITS ---
EXAMINATION: DXA BONE DENSITY AXIAL HISTORY: Z78.0 ASYMPTOMATIC MENOPAUSAL TECHNIQUE: Nexgence Dual energy absorptiometry (DEXA) of the lumbar spine, total left hip, and femoral neck was performed. COMPARISON: There are no prior studies for comparison. FINDINGS: The bone mineral density of the lumbar spine is 1.436 g/cm2, corresponding to a T-score of 2.3, and a Z-score of 3.7. This is indicative of normal bone mineral density. The bone mineral density of the left total hip is 1.019 g/cm2, corresponding to a T-score of 0.1, and a Z-score of 1.4. This is indicative of normal bone mineral density. The bone mineral density of the left femoral neck is 1.176 g/cm2, corresponding to a T-score of 1.0, and a Z-score of 2.5. This is indicative of normal bone mineral density. MM/XR DEXA axial skeleton IMPRESSION: Based on bone mineral density, and according to World Health Organization (WHO) criteria, the diagnosis is consistent with normal bone mineral density. Statistically, 68% of repeat scans fall within 1 SD (+/- 0.010 g/cm2 for AP spine L1-L4) and 1 SD (+/- 0.012 g/cm2 for femur total) FRAX is a trademark of the [employer] [place] for Metabolic Bone Disease, a World Health Organization (WHO) Collaborating Center. Electronically signed by: Marty Cardona MD 04/04/2025 07:02 AM EST
--- OUTSIDE RECORDS SUMMARY | 2025-04-03 20:04 | XMS_ITS | Patient Health Record ---
Author Organization [facility] Address [address] [place] [address] Care Team Providers Care Mechanics Supervisor Name Role Phone Triston CLEMENTE, Lorrie Primary Care Provider Gloria Jaffe Unavailable [phone] Allergies Allergen (clinical drug ingredient) Drug/Non Drug [...] Status Risk Notes Problem Postmenopausal atrophic vaginitis (58474229) Postmenopausal atrophic vaginitis (N95.2) Active confirmed Problem Essential hypertension (66773601) Essential (primary) hypertension (I10) Active confirmed Problem Major depression, single episode (00336668) Major depressive disorder, single episode, unspecified (F32.9) Active confirmed Problem History of malignant melanoma of the skin (319123541329) Personal history of malignant melanoma of skin (Z85.820) Active confirmed Problem Menopausal symptom (78229330) Symptomatic menopausal or female climacteric states (627.2) Active confirmed Major Plan Of Treatment Pending Test Test Name Order Date THIN PREP,HPV,KELLI IF HPV+ (>29YR)(SCRN) 07/01/2017 MM Digital Mammo Screening 07/01/2017 Insurance Providers Payer Name Payer Address Payer Phone Subscriber Number Group Number Insured Name Patient Relationship to Insured Coverage Start Date Coverage End Date [facility] [address] [place] [address] [id number] CHAVA DUNCAN Self - patient is the [...]
--- OUTSIDE RECORDS SUMMARY | 2025-04-03 20:04 | XMS_ITS | Encounter Summary ---
Author Organization [facility] Address [address] [place] [address] Phone Care Team Providers Care Heel Reducer Name Role Phone Joy Diallo MD Primary Care Provider Lala Moncada MD Primary Care Provider [phone]- [phone] Encounter Details Date Type Department Care Team (Late st Contact Info) Description 08/29/2021 Telephone [facility] Primary Care [address] [address] Mayela [email or web address] Social History Tobacco Use Types Packs/Day Years [...] 03/27/2025 Procedure Pass [facility] [address] [place] [address] 04/25/2025 11:00 AM EST Appointment [facility] [address] [place] [address] Ray Mcgowan MD [address] [place] [address] 04/25/2025 11:45 AM EST Appointment [facility] [address] [place] [address] Ray Mcgowan MD [address] [place] [address] 05/02/2025 10:20 AM EST Pre-Admission Testing [facility] PRETESTING [address] [place] [id number] Juan A Redd MD [address] [place] [address] [place] [address] PRADEEP@[email or web address] 05/04/2025 1:30 PM EST Appointment [facility] Echo Lab [address] [place] [address] Ray Mcgowan MD [address] [place] [address] 05/16/2025 Procedure Pass [facility] PERIOPERATIVE DEPT [address] [place] [address] 05/16/2025 2:45 PM EST Hospital Encounter [facility] PERIOPERATIVE DEPT [address] [place] [address] Juan A Redd MD [address] [place] [address] [email or web address] 05/16/2025 2:45 PM EST - 05/16/2025 5:25 PM EST Surgery [facility] PERIOPERATIVE DEPT [address] [place] [address] Juan A Redd MD [address] [place] [address] [email or web address] ARTHROPLASTY TOTAL HIP 06/26/2025 12:30 PM EDT Office Visit [facility] [address] [facility], [address] [place] [address] Juan A Redd MD [address] [place] [address] PRADEEP@[email or web address] 08/14/2025 9:15 AM EDT Office Visit [facility] [address] [facility], [address] [place] [address] Juan A Redd MD [address] [place] [address] [email or web address] Scheduled Procedures Name Priority Associated Diagnoses Date/Ti me ARTHROPLASTY TOTAL HIP Primary osteoarthritis of left hip 05/16/2025 2:45 PM EST MODIFIER ARTHROPLASTY TOTAL HIP BARBARA Primary osteoarthritis of left hip 05/16/2025 2:45 PM EST documented as of this encounter Visit Diagnoses Not on filedocumented in this encounter Care Teams Heel Reducer Relationship Specialty Start Date End Date Joy Diallo MD [address] [place] [address] PCP - General 06/12/21 02/22/25 Lala Moncada MD [address] [place] [address] PCP - General Internal Medicine 02/23/25 documented as of this encounter Additional Source Comments The information contained in this document represents components of the legal health record. It is not the complete legal health record.[facility]
--- OUTSIDE RECORDS SUMMARY | 2025-04-03 20:04 | XMS_ITS | Clinical Summary ---
Author Organization [facility] Address [address] [place] [address] Phone Care Team Providers Care Electronic Health Records Specialist Name Role Phone Lala Moncada MD Primary Care Provider +1- [phone] Allergies Active Allergy Reactions Criticality Noted Date [...] Hypertension 02/08/2025 PAD (peripheral artery disease) 02/08/2025 [place] (myocardial infarction) 02/08/2025 Encounters Date Type Department Care Team Description 03/27/2025 1:40 PM EST Office Visit [facility], Cardiology [address] [place] [address] Lisa Mcgowan MD Cardiomyopathy (Primary Dx); Preop cardiovascular exam; Primary hypertension; Peripheral vascular disease; Dyspnea on exertion; Preoperative cardiovascular examination 03/03/2025 Procedure Pass [facility] PERIOPERATIVE DEPT [address] [place] [address] 03/03/2025 Hospital Encounter [facility] PERIOPERATIVE DEPT [address] [place] [address] Juan A Redd MD 02/24/2025 Telephone [facility] 2013 [facility], [address] [address] Keyla Owens CNP 02/24/2025 Telephone [facility], Cardiology 2013 [facility] - [address] [place] [address] Shweta Hutson, vocal performer on Treatment Plan (Cardiac risk assessment for Ortho surgery) 02/22/2025 Orders Only [facility] [address] [place] [address] Dago Moss MD 02/22/2025 Ancillary Orders [facility] [address] [place] [address] Dago Moss MD 02/16/2025 Telephone [facility] 2013 [facility], [address] [address] Princess Hamilton 02/02/2025 11:59 PM EDT Anesthesia Event [facility] PERIOPERATIVE DEPT [address] [place] [address] Keyla Medina CNP [place], Lauren Elizabeth, CNP 01/24/2025 4:38 PM EDT - 01/24/2025 11:59 PM EDT Hospital Encounter [facility] Lab Main [address] [place] [address] Keyla Oewns CNP Discharge Disposition: Home or Self Care 01/24/2025 2:12 PM EDT - 01/24/2025 4:37 PM EDT Hospital Encounter [facility] Phleb [address] [facility], [address] [place] [address] Keyla Owens CNP Discharge Disposition: Home or Self Care 01/24/2025 1:00 PM EDT Office Visit [facility] 2013 [facility], [address] [place] [address] Keyla Owens CNP Preop testing (Primary Dx); Primary osteoarthritis of left hip 01/24/2025 Transcribe Orders [facility] Lab Main [address] [place] [address] Keyla Owens CNP 01/24/2025 Orders Only [facility] 2013 [facility], [address] [place] [address] Princess Hamilton Pre-op testing (Primary Dx) 01/23/2025 Documentation [facility] 2013 [facility], [address] [place] [address] Keyla Owens CNP 01/13/2025 Telephone [facility] [address] [place] [address] Tracie Laws MD, MPH Triage 01/06/2025 1:00 PM EDT Office Visit [facility] [address] [place] [address] Tracie Laws MD, MPH Claudication (Primary Dx) 01/03/2025 10:15 AM EDT Evaluation [facility] [address] [place] [address] 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 (Primary [...] 03/27/2025 Procedure Pass [facility] [address] [place] [address] 04/25/2025 11:00 AM EST Appointment [facility] [address] [place] [address] Lisa Mcgowan MD [address] [place] [address] [email or web address] 04/25/2025 11:45 AM EST Appointment [facility] [address] [place] [address] Lisa Mcgowan MD [address] [place] [address] [email or web address] 05/02/2025 10:20 AM EST Pre-Admission Testing [facility] PRETESTING [address] [place] [address] Juan A Redd MD [address] [place] [address] [email or web address] 05/04/2025 1:30 PM EST Appointment [facility] [address] [place] [address] Lisa Mcgowan MD [address] [place] [address] [email or web address] 05/16/2025 Procedure Pass [facility] PERIOPERATIVE DEPT [address] [place] [address] 05/16/2025 2:45 PM EST Hospital Encounter [facility] PERIOPERATIVE DEPT [address] [place] [address] Juan A Redd MD [address] [place] [address] PRADEEP@[email or web address] 05/16/2025 2:45 PM EST - 05/16/2025 5:25 PM EST Surgery [facility] PERIOPERATIVE DEPT [address] [place] [address] Juan A Redd MD [address] [place] [address] [email or web address] ARTHROPLASTY TOTAL HIP 06/26/2025 12:30 PM EDT Office Visit [facility] 2013 [facility], [address] [place] [address] Juan A Redd MD [address] [place] [address] [email or web address] 08/14/2025 9:15 AM EDT Office Visit [facility] 2013 [facility], [address] [place] [address] Juan A Redd MD [address] [place] [address] [email or web address] Scheduled Procedures Name Priority Associated Diagnoses [...] Routine 01/03/2025 10:36 AM EDT 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 from Last 3 Months Results * ECG 12-LEAD (03/27/2025 1:15 PM EST) Ventricular Rate EKG/MIN 98 BPM [facility] Atrial Rate 98 BPM [facility] TN Interval 130 ms [facility] QRS Duration 90 ms [facility] QT Interval 354 ms [facility] QTC Interval 451 ms [facility] P [place] 76 degrees [facility] R Wave [place] 1 degrees [facility] T Wave [place] 45 degrees [facility] 03/27/2025 1:15 PM EST [...] MRSA/MSSA PRE-OP PCR (01/24/2025 4:38 PM EDT) [facility] MRSA PCR SCREEN MRSA NEGATIVE MRSA NEGATIVE [facility] Staph Aureus PCR Screen SA POSITIVE(A) SA NEGATIVE [facility] Nasal (Nasal) 01/24/2025 4:3 8 PM EDT 01/24/2025 4:51 PM EDT us Keyla Owens [facility] GENERAL ORDERABLES Anna l Result [facility] [address] [place] [address] * (ABNORMAL) CBC (01/24/2025 2:12 PM EDT) [facility] WBC 11.87(H) 4.00 - 11.00 K/uL [facility] RBC 5.62(H) 4.00 - 5.20 M/uL [facility] HGB 15.6 12.0 - 16.0 g/dL [facility] HCT 48.0(H) 36.0 - 46.0 % [facility] PLT 265 150 - 450 K/uL [facility] MCV 85.4 80.0 - 100.0 fL [facility] MCH 27.8 27.0 - 31.0 pg [facility] MCHC 32.5 32.0 - 36.0 g/dL [facility] RDW 14.0 11.5 - 14.5 % [facility] MPV 12.1(H) 8.4 - 12.0 fL [facility] NRBC 0.00 0.00 /100 WBCs [facility] 01/24/2025 2:12 PM EDT 01/24/2025 4:20 PM EDT [facility] LAB BLOOD BKR ORDERABLES Fi nal Result Performing Organization Address [facility] Co de Phone Number [facility] [address] [place] [address] * (ABNORMAL) Hemoglobin A1c (01/24/2025 2:12 PM EDT) HEMOGLOBIN A1C 6.1(H) 4.3 - 5.6 % [facility] Comment: Normal 4.3-5.6% Prediabetes 5.7-6.4% Diagnostic for diabetes >6.5% CALC MEAN BLD GLUC 128 mg/dL [facility] 01/24/2025 2:12 PM EDT 01/24/2025 4:19 PM EDT [facility] LAB BLOOD BKR ORDERABLES Fi nal Result Performing Organization Address [facility] de Phone Number [facility] [address] [place] [address] * (ABNORMAL) Basic metabolic panel (01/24/2025 2:12 PM EDT) SODIUM 139 136 - 145 mmol/L [facility] CHLORIDE 100 95 - 106 mmol/L [facility] POTASSIUM 4.9 3.5 - 5.2 mmol/L [facility] CO2 23 20 - 31 mmol/L [facility] BUN 20 9 - 23 mg/dL [facility] CREATININE 0.97 0.50 - 1.30 mg/dL [facility] GLUCOSE 129(H) 74 - 106 mg/dL [facility] CALCIUM 10.6(H) 8.7 - 10.4 mg/dL [facility] EGFR 63 >60 mL/min/1.7 3m2 [facility] Comment:Estimated glomerular filtration rate calculated using the CKD-EPI refit equation. ANION GAP 16 3 - 17 mmol/L [facility] 01/24/2025 2:12 PM EDT 01/24/2025 4:19 PM EDT Keyla Owens [facility] BLOOD BKR ORDERABLES Fi nal Result [facility] [address] [place] [address] from Last 3 Months Additional Health Concerns Active Problems Noted Date Diagnosed Date Autogenerated Problem 03/04/2025 Autogenerated Problem 03/27/2025 Insurance MEDICARE PART A & B [place]AC[place] MEDICARE PART A & B [id number] [place] [address] MEDICARE PPO BLUE REPLACEMENT MEDICARE PART A & B [facility] MEDICARE PPO BLUE REPLACEMENT MEDICARE PART A & B MEDICARE PPO BLUE REPLACEMENT MEDICARE PART A & B MEDICARE PPO BLUE REPLAC[place] MEDICARE [place] A [place] RE[place] MEDICARE PART A & B [facility] MEDICARE PPO BLUE REPLACEMENT MEDICARE PART A & B [facility] MEDICARE PPO BLUE REPLACEMENT MEDICARE PART A & B Member Subscriber Plan / Payer (Ef fective 2020-Present) Name:Asiya Chavez Member ID:[id number] Relation to Subscriber:Self Name:Asiya Chavez Subscriber ID:[id number] Payer ID:[id number] Group ID:Not on file Type:Medicare Address: [employer] [address] [place] [address] [place] [address] MEDICARE PPO BLUE REPLACEMENT MEDICARE PART A & B Member Subscriber Plan / Payer ( fective 2020-Present) Name:Asiya Chavez Member ID:[id number] Relation to Subscriber:Self Name:Asiya Chavez Tj Subscriber ID:[id number] Payer ID:[id number] Group ID:Not on file Type:Medicare Address: [employer] [address] [place] [address] [place] [address] MEDICARE PPO BLUE REPLACEMENT Care Teams Electronic Health Records Specialist Relationship Specialty Start Date End Date Lala Moncada MD [address] [place] [address] PCP - General Internal Medicine 02/23/25 Additional Source Comments The information contained in this document represents components of the legal health record. It is not the complete legal health record.[facility]
--- OUTSIDE RECORDS SUMMARY | 2025-04-03 20:04 | XMS_ITS | Encounter Summary ---
Author Organization [facility] Address [address] [facility] [address] [place] [address] Phone Care Team Providers Care Software Installation Engineer Name Role Phone Lala Moncada MD Primary Care Provider [phone]- [phone] Reason for Visit * Auth/Cert (Routine) Specialty Diagnoses / Procedures Referred By Duyen nielson Referred To Contact Diagnoses Primary osteoarthritis of left hip M16.12 Procedures AR TOTAL HIP ARTHROPLASTY ARTHROPLASTY TOTAL HIP MODIFIER ARTHROPLASTY TOTAL HIP Juan A Akins MD [address] [place] [address] Phone: tel: fax: mailto:[email or web address] Referral ID Status Reason Start Date Expiration Date Visits Re quested Visits Authorized [id number] 01/06/2025 1 1 Encounter Details Date Type Department Care Team (Late st Contact Info) Description 03/03/2025 Hospital Encounter [facility] PERIOPERATIVE DEPT [address] [place] [address] Juan A Redd MD [address] [place] [address] [email or web address] Social History Tobacco Use Types Packs/Day Years [...] (Latest Contact Info) Description 03/27/2025 Procedure Pass [facility] Echo Lab [address] [place] [address] 04/25/2025 11:00 AM EST Appointment [facility] Cardiac Stress Clinic [address] [place] [address] Ray Mcgowan MD [address] [place] [address] 04/25/2025 11:45 AM EST Appointment [facility] Card[facility] Clinic [address] [place] [address] Ray Mcgowan MD [address] [place] [address] 05/02/2025 10:20 AM EST Pre-Admission Testing [facility] PRETESTING [address] [place] [address] Juan A Redd MD [address] [place] [address] [email or web address] 05/04/2025 1:30 PM EST Appointment [facility] Echo Lab [address] [place] [address] Ray Mcgowan MD [address] [facility] [place] [facility] [place] [address] [email or web address] 05/16/2025 Procedure Pass [facility] PERIOPERATIVE DEPT [address] [place] [address] 05/16/2025 2:45 PM EST Hospital Encounter [facility] PERIOPERATIVE DEPT [address] [place] [address] Juan A Redd MD [address] [place] [address] PRADEEP@[email or web address] 05/16/2025 2:45 PM EST - 05/16/2025 5:25 PM EST Surgery [facility] PERIOPERATIVE DEPT [address] [place] [address] Juan A Redd MD [address] [place] [address] PRADEEP@[email or web address] ARTHROPLASTY TOTAL HIP 06/26/2025 12:30 PM EDT Office Visit [facility] [place] 2013 [facility], [address] [address] Juan A Redd MD [address] [place] [address] PRADEEP@[email or web address] 08/14/2025 9:15 AM EDT Office Visit [facility] [place] 2013 [facility], [address] [address] Juan A Redd MD [address] [place] [address] PRADEEP@[email or web address] Scheduled Procedures Name Priority Associated Diagnoses Date/Ti me ARTHROPLASTY TOTAL HIP Primary osteoarthritis of left hip 05/16/2025 2:45 PM EST MODIFIER ARTHROPLASTY TOTAL HIP BARBARA Primary osteoarthritis of left hip 05/16/2025 2:45 PM EST documented as of this encounter Visit Diagnoses Not on filedocumented in this encounter Care Teams Software Installation Engineer Relationship Specialty Start Date End Date Lala Moncada MD [address] [place] [address] PCP - General Internal Medicine 02/23/25 documented as of this encounter Additional Source Comments The information contained in this document represents components of the legal health record. It is not the complete legal health record.[facility]
--- OUTSIDE RECORDS SUMMARY | 2025-04-03 20:04 | XMS_ITS | Encounter Summary ---
Author Organization [facility] Address [address] [place] [address] Phone Care Team Providers Care Cdl Flatbed Truck Driver Name Role Phone Joy Diallo MD Primary Care Provider Lala Moncada MD Primary Care Provider [phone]- [phone] Encounter Details Date Type Department Care Team (Late st Contact Info) Description 07/04/2021 Procedure Pass [facility] EKG [address] [place] [address] Social History Tobacco Use Types Packs/Day Years [...] (Latest Contact Info) Description 03/27/2025 Procedure Pass [facility] Echo Lab [address] [place] [address] 04/25/2025 11:00 AM EST Appointment [facility] Cardiac Stress Clinic [address] [place] [address] Ray Mcgowan MD [address] [place] [address] [place] [address] 04/25/2025 11:45 AM EST Appointment [facility] Cardiac Stress Clinic [address] [place] [address] Ray Mcgowan MD [address] [place] [address] 05/02/2025 10:20 AM EST Pre-Admission Testing [facility] PRETESTING [address] [place] [address] Juan A Redd MD [address] [place] [address] [email or web address] 05/04/2025 1:30 PM EST Appointment [facility] [address] [place] [address] Ray Mcgowan MD [address] [place] [address] [email or web address] 05/16/2025 Procedure Pass [facility] PERIOPERATIVE DEPT [address] [place] [address] 05/16/2025 2:45 PM EST Hospital Encounter [facility] PERIOPERATIVE DEPT [address] [place] [address] Juan A Redd MD [address] [place] [address] [email or web address] 05/16/2025 2:45 PM EST - 05/16/2025 5:25 PM EST Surgery [facility] PERIOPERATIVE DEPT [address] [place] [address] Juan A Redd MD [address] [place] [address] [email or web address] ARTHROPLASTY TOTAL HIP 06/26/2025 12:30 PM EDT Office Visit [facility] [place] 2013 [facility], [address] [place] [address] Juan A Redd MD [address] [place] [address] PRADEEP@[email or web address] 08/14/2025 9:15 AM EDT Office Visit Only [facility] [place] 2013 [facility], [address] [place] [address] Juan A Redd MD [address] [place] [address] [email or web address] Scheduled Procedures Name Priority Associated Diagnoses Date/Ti me ARTHROPLASTY TOTAL HIP Primary osteoarthritis of left hip 05/16/2025 2:45 PM EST MODIFIER ARTHROPLASTY TOTAL HIP BARBARA Primary osteoarthritis of left hip 05/16/2025 2:45 PM EST documented as of this encounter Visit Diagnoses Not on filedocumented in this encounter Care Teams Cdl Flatbed Truck Driver Relationship Specialty Start Date End Date Joy Diallo MD [address] [place] [address] PCP - General 06/12/21 02/22/25 Lala Moncada MD [address] [place] [address] PCP - General Internal Medicine 02/23/25 documented as of this encounter Additional Source Comments The information contained in this document represents components of the legal health record. It is not the complete legal health record.[facility]
--- OUTSIDE RECORDS SUMMARY | 2025-04-03 20:04 | XMS_ITS | Encounter Summary ---
Author Organization [facility] Address [address] [place] [address] [place] [address] Phone Care Team Providers Care Slaughterer Religious Ritual Name Role Phone Lala Moncada MD Primary Care Provider [phone]- [phone] Encounter Details Date Type Department Care Team (Late st Contact Info) Description 03/03/2025 Procedure Pass [facility] PERIOPERATIVE DEPT [address] [place] [address] Social History Tobacco Use Types Packs/Day Years [...] 03/27/2025 Procedure Pass [facility] Lab [address] [place] [address] 04/25/2025 11:00 AM EST Appointment [facility] Card[facility] Stress Clinic [address] [place] [address] [place] [address] [place] [address] 04/25/2025 11:45 AM EST Appointment [facility] [address] [place] [address] Ray Mcgowan MD [address] [place] [address] 05/02/2025 10:20 AM EST Pre-Admission Testing [facility] PRETESTING [address] [place] [address] Juan A Redd MD [address] [employer] [address] PRADEEP@[email or web address] 05/04/2025 1:30 PM EST Appointment [facility] Echo Lab [address] [place] [address] Ray Mcgowan MD [address] [place] [address] 05/16/2025 Procedure Pass [facility] PERIOPERATIVE DEPT [address] [place] [address] 05/16/2025 2:45 PM EST Hospital Encounter [facility] PERIOPERATIVE DEPT [address] [place] [address] Juan A Redd MD [address] [facility] [employer] [address] PRADEEP@[email or web address] 05/16/2025 2:45 PM EST - 05/16/2025 5:25 PM EST Surgery [facility] PERIOPERATIVE DEPT [address] [place] [address] Juan A Redd MD [address] [place] [address] PRADEEP@[facility] ARTHROPLASTY TOTAL HIP 06/26/2025 12:30 PM EDT Office Visit [facility] [place] 2013 [facility] [address] [place] [address] Juan A Redd MD [address] [place] [address] PRADEEP@[facility] 08/14/2025 9:15 AM EDT Office Visit [facility] [place] 2013 [facility], [address] [address] Juan A Redd MD [address] [place] [address] PRADEEP@[email or web address] Scheduled Procedures Name Priority Associated [...] documented as of this encounter Care Teams Slaughterer Religious Ritual Relationship Specialty Start Date End Date Lala Moncada MD [address] [place] [address] PCP - General Internal Medicine 02/23/25 documented as of this encounter Additional Source Comments The information contained in this document represents components of the legal health record. It is not the complete legal health record.[facility]
--- OUTSIDE RECORDS SUMMARY | 2025-04-03 20:04 | XMS_ITS | Encounter Summary ---
Author Organization [facility] Address [address] [place] [address] Phone Care Team Providers Care Technical Recruiter Name Role Phone Joy Diallo MD Primary Care Provider Lala Moncada MD Primary Care Provider [phone] Encounter Details Date Type Department Care Team (Late st Contact Info) Description 01/24/2025 Transcribe Orders [facility] Lab Main [address] [place] [address] Keyla Owens, RECEIVING DOCK CHECKER [address] [facility] [address] [place] [address] [email or web address] Social History Tobacco Use Types Packs/Day Years [...] (Latest Contact Info) Description 03/27/2025 Procedure Pass [facility] Echo Lab [address] [place] [address] 04/25/2025 11:00 AM EST Appointment [facility] [place] [address] Ray Mcgowan MD [address] [place] [address] 04/25/2025 11:45 AM EST Appointment [facility] [address] [place] [address] Ray Mcgowan MD [address] [place] [address] 05/02/2025 10:20 AM EST Pre-Admission Testing [facility] PRETESTING [address] [place] [address] Juan A Redd MD [address] [address] [email or web address] 05/04/2025 1:30 PM EST Appointment [facility] Echo Lab [address] [place] [address] Ray Mcgowan MD [address] [place] [address] 05/16/2025 Procedure Pass [facility] PERIOPERATIVE DEPT [address] [place] [address] 05/16/2025 2:45 PM EST Hospital Encounter [facility] PERIOPERATIVE DEPT [address] [place] [address] Juan A Redd MD [address] [place] [address] [email or web address] 05/16/2025 2:45 PM EST - 05/16/2025 5:25 PM EST Surgery [facility] PERIOPERATIVE DEPT [address] [place] [address] Juan A Redd MD [address] [place] [address] [email or web address] ARTHROPLASTY TOTAL HIP 06/26/2025 12:30 PM EDT Office Visit [facility] 2013 [facility], [address] [address] Juan A Redd MD [address] [place] [address] [email or web address] 08/14/2025 9:15 AM EDT Office Visit [facility] 2013 [facility], [address] [address] Juan A Redd MD [address] [place] [address] [email or web address] Scheduled Procedures Name Priority Associated Diagnoses Date/Ti me ARTHROPLASTY TOTAL HIP Primary osteoarthritis of left hip 05/16/2025 2:45 PM EST MODIFIER ARTHROPLASTY TOTAL HIP BARBARA Primary osteoarthritis of left hip 05/16/2025 2:45 PM EST documented as of this encounter Visit Diagnoses Not on filedocumented in this encounter Care Teams Technical Recruiter Relationship Specialty Start Date End Date Joy Diallo MD [address] [place] [address] PCP - General 06/12/21 02/22/25 Lala Moncada MD [address] [place] [address] PCP - General Internal Medicine 02/23/25 documented as of this encounter Additional Source Comments The information contained in this document represents components of the legal health record. It is not the complete legal health record.[facility]
== END 2025-04-03 13:52 | disposition home or self-care (01) ==
LOC: HO.MAMMO 13:51
PROVIDERS: Visit Provider Internal Medicine
DX: Z00.00 Encounter for general adult medical examination without abnormal findings (principal); Z78.0 Asymptomatic menopausal state
CPT/HCPCS: 77080

== ENCOUNTER 2025-04-19 10:32 | Outpatient (AMB) | payer MEDICARE, SELFPAY ==
[2025-04-19 11:11] VITALS: BP 150/80; PULSE 65; O2SAT 96; BMI 32.2
--- NOTE | 2025-04-19 11:11 | A.OFFVIS_ITS ---
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 Had one recorded episode of snoring for 18 minutes. Patient states on her watch her 02 drops to 79%. Hard time falling asleep. Can fall asleep while talking. Accompanied by: Self / Same As Patient Allergies vancomycin Allergy (Unknown, Verified 04/19/25 11:15) Redness of Skin tetracaine (TETRACAINE) Adverse Reaction (Unknown, Verified 04/19/25 11:15) CYSTITIS HPI Comments Details: 70 year old female presents for an evaluation of sleep apnea. PMH of CAD, Osteoarthritis, Melanoma, occlusion of the SFA, she was born with one kidney, and l. hip surgery is pending Apr 2024 at [facility]. 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 She had a sleep study over 5 years ago and it was inconclusive. She has disturbed sleep with desaturation of O2 to below 80% on her apple watch. She has trouble staying asleep due to loud snoring, she falls asleep throughout the day and in the midst of conversations. She thinks she has long covid type lingering residual symptoms of chronic fatigue. She has morning headaches which can last for hours, has r. ear infections, congestion due to rhinorrhea and stuffiness. She has difficulty getting up out of the chair or a vehicle, denies vertigo, feels dizzy, gait and balance difficulties with near falls. Her r. foot pronates at the heel of her r. shoe. She sleeps in a recliner and or her r. side if able to sleep in her bed since her arm goes numb if she sleeps on her left side due to CTS. She has bilateral lower extremity neurogenic claudication due to spinal stenosis and arterial occlusion with PAD. RLS with paresthesias in upper and lower extremities bilaterally and radiating pain. She has anxiety, repeated attacks of discomfort like sensations in her legs, she pumps her legs and does her hip exercises, even if traveling on a plane. She never tried medication as her symptoms of sciatica and rls improved after her r. hip replacement 06/2004. However now they are severe and persistent. Memory is stable, she is very organized. Mood is low anxious, depressed. She is irritable and mean spirited to her . She does not smoke, ambulates short distances with her cane due to l. hip pain. Denies falls, parasomnias and abnormal sleep behaviors. Denies FH. [facility] Medical History Melanoma Blood pressure check Surgical History History of right hip replacement History of total left knee replacement (TKR) Status post reverse arthroplasty of right shoulder (~10/18/18) Social History Household Members: Spouse Alcohol intake: never Patient Tobacco Use Status: Never used Tobacco e-Cigarette/Vaping Use: Never Used Second Hand Smoke Exposure: No Substance Use Type: Marijuana service: No Current occupational status: retired Cognitive needs: Yes (Glasses) Hearing needs: No Vision needs: Yes (Glasses) Physical Exam Vital Signs: Last Vital Signs Pulse 65 04/19/25 11:11 BP 150/80 H 04/19/25 11:11 Pulse Ox 96 04/19/25 11:11 Oxygen Delivery Method Room Air 04/19/25 11:11 BMI result Body Mass Index 32.2 Const General: cooperative and no acute distress Nutritional Appearance: overweight Orientation/consciousness: patient oriented x3 Limitations: ambulation with cane HEENT Face and sinus: Yes face symmetric Teeth and gingiva: other (mallampti score is 4) Eyes Pupils: Equal, round and reactive pupils present Neck Neck: Yes full ROM Resp Effort & Inspection: normal respiratory effort and able to speak in complete sentences Neuro Other: Bilateral mild upper extremity tremors. stooped posture, ambulates with cane Gait is off, r. foot pronates in orthopedic shoes. Stride is off to the side, leans to the side of the cane. General: patient oriented x3 Cranial nerves: Yes Equal, round and reactive pupils present, Yes Normal facial strength present, Yes Ability to bilaterally rotate head present and Yes Ability to bilaterally elevate shoulders present Gait exam (Neuro): Antalgic gait present and Assisted gait required Motor exam (neuro): Abnormal motor strength present and Abnormal muscle tone present Psych Appearance: grossly normal Mental Status: mental status grossly normal Thought process: Normal thought process present Results Reviewed Results Reviewed: labs requested from pcp. Assessment & Plan Assessment & Plan (1) Excessive daytime sleepiness: Code(s): G47.19 - Other hypersomnia Category: Medical (2) Balance problem due to vestibular dysfunction: Code(s): H81.90 - Unspecified disorder of vestibular function, unspecified ear Category: Medical Qualifiers: Laterality: right Qualified Code(s): H81.91 - Unspecified disorder of vestibular function, right ear (3) Gait difficulty: Comment: leans Code(s): R26.9 - Unspecified abnormalities of gait and mobility Category: Medical (4) Loud snoring: Code(s): R06.83 - Snoring Category: Medical Plan Excessive daytime sleepiness HST to r/o johanna PT evaluation and treatment for r. foot pronation, gait and balance difficulties, dizziness, near falls, difficulty getting out of a chair. Labs requested from her pcp. Orders: Orders RT home sleep study Today G47.19 - Other hypersomnia PT Evaluation and Treatment Today H81.90 - Unspecified disorder of vestibular function, unspecified ear, R26.9 - Unspecified abnormalities of gait and mobility Patient Instructions: Sleep Hygiene provided: set a scheduled bedtime and wake time to help regulate the circadian rhythm and balance the release of pituitary hormones. Sleep in a dark room, temperatures below 68 degrees, and no devices n bed. Limit caffeinated products 6 hours prior to bed, and limit fluids 2-4 hours prior to bed. Gentle night yoga, diffusing essential oils, and playing soft music can be relaxing. Please complete the following fasting labs to rule out deficiencies. CBC/CMP/ B12/ Vit D/ TSH/ Homocysteine and MMA/ Ferritin. Coding Level of Care Code New Pt Level 4 (44260) Diagnoses Excessive daytime sleepiness G47.19 Balance problem due to vestibular dysfunction of right ear H81.91 Laterality: right Gait difficulty R26.9 Loud snoring R06.83 Sleep Questionnaire Difficulty falling asleep: No Difficulty staying asleep?: Yes Number of arousals: 3-4 Snoring: Yes Witnessed apneas: No Gasping arousals: No Nocturia: No GERD: No Vivid dreams: No Acting out dreams: No Abnormal behavior in sleep: No Abnormal movements in sleep: No Morning headaches: No Excessive daytime sleepiness: Yes Daytime naps: Yes Restless legs: No Hallucinations: No Sleep paralysis: No Drop attacks: No Sleep Study: Yes CPAP: No
--- OUTSIDE RECORDS SUMMARY | 2025-04-19 11:47 | XMS_ITS | Encounter Summary ---
Author Organization [facility] Address [address] [place] [address] Phone Care Team Providers Care Marketing Administrative Assistant Name Role Phone Joy Diallo MD Primary Care Provider Lala Moncada MD Primary Care Provider [phone] Ray Mcgowan MD Unavailable [phone] Encounter Details Date Type Department Care Team (Late st Contact Info) Description 08/29/2021 Telephone [facility] Primary [facility] Clinic [address] [place] [address] [email or web address] Social History Tobacco Use Types Packs/Day Years [...] (Latest Contact Info) Description 03/27/2025 Procedure Pass [facility] Lab [address] [place] [address] 04/25/2025 11:00 AM EST Appointment [facility] [address] [place] [address] Ray Mcgowan MD [address] [place] [address] 04/25/2025 11:45 AM EST Appointment [facility] [address] [place] [address] Ray Mcgowan MD [address] [place] [address] 05/02/2025 10:20 AM EST Pre-Admission Testing [facility] PRETESTING [address] [place] [address] Juan A Redd MD [address] [place] [place] [id number] [email or web address] 05/04/2025 1:30 PM EST Appointment [facility] Echo Lab [address] [place] [address] Ray Mcgowan MD [address] [place] [address] [email or web address] 05/16/2025 Procedure Pass [facility] PERIOPERATIVE DEPT [address] [place] [address] 05/16/2025 2:45 PM EST Hospital Encounter [facility] PERIOPERATIVE DEPT [address] [place] [address] Juan A Redd MD [address] [place] [address] [place] [address] [email or web address] 05/16/2025 2:45 PM EST - 05/16/2025 5:25 PM EST Surgery [facility] PERIOPERATIVE DEPT [address] [place] [address] Juan A Redd MD [address] [place] [address] [email or web address] ARTHROPLASTY TOTAL HIP 06/26/2025 12:30 PM EDT Office [facility] [address] [facility], [address] [place] [address] Juan A Redd MD [address] [place] [address] [email or web address] 08/14/2025 9:15 AM EDT Office Visit [facility] [address] [facility], [address] [place] [address] Juan A Redd MD [address] [place] [address] [email or web address] Scheduled Procedures Name Priority Associated Diagnoses Date/Ti me ARTHROPLASTY TOTAL HIP Primary osteoarthritis of left hip 05/16/2025 2:45 PM EST MODIFIER ARTHROPLASTY TOTAL HIP BARBARA Primary osteoarthritis of left hip 05/16/2025 2:45 PM EST documented as of this encounter Visit Diagnoses Not on filedocumented in this encounter Care Teams Marketing Administrative Assistant Relationship Specialty Start Date End Date Joy Diallo MD [address] [place] [address] PCP - General 06/12/21 02/22/25 Lala Moncada MD [address] [place] [address] PCP - General Internal Medicine 02/23/25 Ray Mcgowan MD [address] [place] [address] Cardiology 04/14/25 documented as of this encounter Additional Source Comments The information contained in this document represents components of the legal health record. It is not the complete legal health record.[facility]
--- OUTSIDE RECORDS SUMMARY | 2025-04-19 11:47 | XMS_ITS | Clinical Summary ---
Author Organization [facility] Address [address] [place] [address] Phone Care Team Providers Care Certified Registered Nurse Anesthetist Name Role Phone Lala Moncada MD Primary Care Provider [phone] Lisa Mcgowan MD Unavailable [phone] Allergies Active Allergy Reactions Criticality Noted Date [...] Hypertension 02/08/2025 PAD (peripheral artery disease) 02/08/2025 VT (myocardial infarction) 02/08/2025 Encounters Date Type Department Care Team Description 03/27/2025 1:40 PM EST Office Visit [facility] Cardiology [facility] [address] [place] [address] Lisa Mcgowan MD Cardiomyopathy (Primary Dx); Preop cardiovascular exam; Primary hypertension; Peripheral vascular disease; Dyspnea on exertion; Preoperative cardiovascular examination 03/03/2025 Procedure Pass [facility] PERIOPERATIVE DEPT [address] [place] [address] 03/03/2025 Hospital Encounter [facility] PERIOPERATIVE DEPT [address] [place] [address] Juan A Redd MD 02/24/2025 Telephone [facility] Orthopedics [facility] [address] [address] Keyla Owens CNP 02/24/2025 Telephone [facility] Cardiology [facility] 2013 [facility] [address] [place] [address] Shweta Hutson, plant breeder on Treatment Plan (Cardiac risk assessment for Ortho surgery) 02/22/2025 Orders Only [facility] Cardiovascular Clinic [address] [place] [address] Dago Moss MD 02/22/2025 Ancillary Orders [facility] Radiology [address] [place] [address] Dago Moss MD 02/16/2025 Telephone [facility] Orthopedics [facility] 2013 [facility], [address] [place] [address] Princess Hamilton 02/02/2025 11:59 PM EDT Anesthesia Event [facility] PERIOPERATIVE DEPT [address] [place] [address] Keyla Medina CNP [place], Lauren Elizabeth, CNP 01/24/2025 4:38 PM EDT - 01/24/2025 11:59 PM EDT Hospital Encounter [facility] Lab Main [address] [place] [address] Keyla Owens CNP Discharge Disposition: Home or Self Care 01/24/2025 2:12 PM EDT - 01/24/2025 4:37 PM EDT Hospital Encounter [facility]le[facility] [address] [facility], [address] [place] [address] Keyla Owens CNP Discharge Disposition: Home or Self Care 01/24/2025 1:00 PM EDT Office Visit [facility] Orthopedics Clinic 2013 [facility], [facility] [address] [place] [address] Keyla Owens CNP Preop testing (Primary Dx); Primary osteoarthritis of left hip 01/24/2025 Transcribe Orders [facility] Lab Main [address] [place] [address] Keyla Owens CNP 01/24/2025 Orders Only [facility] Orthopedics Clinic 2013 [facility], [facility] [address] [place] [address] Princess Hamilton Pre-op testing (Primary Dx) 01/23/2025 Documentation [facility] Orthopedics Clinic 2013 [facility], [facility] 361 [place] [address] Keyla Owens CNP from Last 3 Months Family History Medical [...] (Latest Contact Info) Description 03/27/2025 Procedure Pass [facility] [address] [place] [address] 04/25/2025 11:00 AM EST Appointment [facility] Cardiac Stress Clinic [facility]3 [place] [address] Lisa Mcgowan MD [address] [place] [address] 04/25/2025 11:45 AM EST Appointment [facility] [address] [place] [address] Lisa Mcgowan MD [address] [place] [address] 05/02/2025 10:20 AM EST Pre-Admission Testing [facility] PRETESTING [address] [place] [address] Juan A Redd MD [address] [place] [address] [email or web address] 05/04/2025 1:30 PM EST Appointment [facility] [address] [place] [address] Lisa Mcgowan MD [facility] [place] [address] [email or web address] 05/16/2025 Procedure Pass [facility] PERIOPERATIVE DEPT [address] [place] [address] 05/16/2025 2:45 PM EST Hospital Encounter [facility] PERIOPERATIVE DEPT [address] [place] [address] Juan A Redd MD [address] [place] [address] [email or web address] 05/16/2025 2:45 PM EST - 05/16/2025 5:25 PM EST Surgery [facility] PERIOPERATIVE DEPT [address] [place] [address] Juan A Redd MD [address] [place] [address] PRADEEP@[email or web address] ARTHROPLASTY TOTAL HIP 06/26/2025 12:30 PM EDT Office Visit [facility] Orthopedics [facility] 2013 [facility], [address] [address] Juan A Redd MD [address] [place] [address] PRADEEP@[email or web address] 08/14/2025 9:15 AM EDT Office Visit [facility] Orthopedics [facility] 2013 [facility], [address] [place] [address] Juan A Redd MD [address] [place] [address] [email or web address] Scheduled Procedures Name Priority Associated Diagnoses [...] 09/08/2011 INFLUENZA VACCINE (#1) 2024 COVID-19 VACCINE (3 - season) 2024 08/07/2020, 08/07/2020, 07/10/2020, Additional history [...] Type Associated Problems Recent Progress Patient-Stated? Author Autojewell davidson Goal Care Plan Autogenerated Problem No Optime, Admin Autojewell davidson Goal Care Plan Autogenerated Problem [...] Routine 01/24/2025 2:12 PM EDT Preop testing from Last 3 Months Results * ECG 12-LEAD (03/27/2025 1:15 PM EST) Ventricular Rate EKG/MIN 98 BPM [facility] Atrial Rate 98 BPM [facility] PA Interval 130 ms [facility] QRS Duration 90 ms [facility] QT Interval 354 ms [facility] QTC Interval 451 ms [facility] P [place] 76 degrees [facility] R Wave [place] 1 degrees [facility] T Wave [place] 45 degrees [facility] 03/27/2025 1:15 PM EST Narrative [facility] - 03/30/2025 5:18 PM EST SINUS RHYTHM OCCASIONAL PREMATURE VENTRICULAR COMPLEXES OTHERWISE NORMAL ECG WHEN COMPARED WITH ECG OF 28-MAR-2011 13:21, PREMATURE VENTRICULAR COMPLEXES ARE NOW PRESENT VENT. RATE HAS INCREASED BY 34 BPM us Lisa Mcgowan MD ECG ORDERABLES Final Result [facility] * Outside Imaging Report Only (02/22/2025) us Scanning Interface Provider IMG XR CHEST Anna l Result * Outside Lab (Non-MGB) (02/21/2025) us Scanning Interface Provider LAB BLOOD BKR ORDERA BLES Final Result * (ABNORMAL) MRSA/MSSA PRE-OP PCR (01/24/2025 4:38 PM EDT) Pathologist [facility] MRSA PCR SCREEN MRSA NEGATIVE MRSA NEGATIVE [facility] Staph Aureus PCR Screen SA POSITIVE(A) SA NEGATIVE [facility] Nasal (Nasal) 01/24/2025 4:3 8 PM EDT 01/24/2025 4:51 PM EDT Keyla Owens DIRECTOR OF MARKET INTELLIGENCE LAB GENERAL ORDERABLES Anna l Result [facility] [address] [place] [id number] * (ABNORMAL) CBC (01/24/2025 2:12 PM EDT) Pathologist [facility] WBC 11.87(H) 4.00 - 11.00 K/uL [facility] RBC 5.62(H) 4.00 - 5.20 M/uL [facility] HGB 15.6 12.0 - 16.0 g/dL [facility] HCT 48.0(H) 36.0 - 46.0 % [facility] PLT 265 150 - 450 K/uL [facility] MCV 85.4 80.0 - 100.0 fL [facility] MCH 27.8 27.0 - 31.0 pg [facility] MCHC 32.5 32.0 - 36.0 g/dL [facility] RDW 14.0 11.5 - 14.5 % [facility] MPV 12.1(H) 8.4 - 12.0 fL [facility] NRBC 0.00 0.00 /100 WBCs [facility] 01/24/2025 2:12 PM EDT 01/24/2025 4:20 PM EDT Keyla Owens DIRECTOR OF MARKET INTELLIGENCE LAB BLOOD BKR ORDERABLES Fi nal Result Performing Organization Address [facility] Co de Phone Number [facility] [address] [place] [address] * (ABNORMAL) Hemoglobin A1c (01/24/2025 2:12 PM EDT) HEMOGLOBIN A1C 6.1(H) 4.3 - 5.6 % [facility] Comment: Normal 4.3-5.6% Prediabetes 5.7-6.4% Diagnostic for diabetes >6.5% CALC MEAN BLD GLUC 128 mg/dL [facility] 01/24/2025 2:12 PM EDT 01/24/2025 4:19 PM EDT Keyla Owens DIRECTOR OF MARKET INTELLIGENCE LAB BLOOD BKR ORDERABLES Fi nal Result Performing Organization Address [facility] Co de Phone Number [facility] [address] [place] [address] * (ABNORMAL) Basic metabolic panel (01/24/2025 2:12 PM EDT) SODIUM 139 136 - 145 mmol/L [facility] CHLORIDE 100 95 - 106 mmol/L [facility] POTASSIUM 4.9 3.5 - 5.2 mmol/L [facility] CO2 23 20 - 31 mmol/L [facility] BUN 20 9 - 23 mg/dL [facility] CREATININE 0.97 0.50 - 1.30 mg/dL [facility] GLUCOSE 129(H) 74 - 106 mg/dL [facility] CALCIUM 10.6(H) 8.7 - 10.4 mg/dL [facility] EGFR 63 >60 mL/min/1.7 3m2 [facility] Comment:Estimated glomerular filtration rate calculated using the CKD-EPI refit equation. ANION GAP 16 3 - 17 mmol/L [facility] 01/24/2025 2:12 PM EDT 01/24/2025 4:19 PM EDT Keyla Owens DIRECTOR OF MARKET INTELLIGENCE LAB BLOOD BKR ORDERABLES Fi nal Result [facility] [address] [place] [address] from Last 3 Months Additional Health Concerns Active Problems Noted Date Diagnosed Date Autogenerated Problem 03/04/2025 Autogenerated Problem 03/27/2025 Insurance MEDICARE PART A & B [place]UE RE[place]AC[place] MEDICARE PART A & B [facility] MEDICARE PPO BLUE REPLACEMENT MEDICARE PART A & B [facility] MEDICARE PPO BLUE REPLACEMENT MEDICARE PART A & B MEDICARE PPO BLUE REPLACEMENT MEDICARE PART A & B MEDICARE PPO BLUE REPLACEMENT MEDICARE PART A & B Member Subscriber Plan / Payer (Ef fective 2020-Present) Name:Nidia Chavezgiuliana Spencer Member ID:[id number] Relation to Subscriber:Self Name:Asiya Chavez Tj Subscriber ID:[id number] Payer ID:[id number] Group ID:Not on file Type:Medicare Address: [place] MEDICARE PPO BLUE REPLACEMENT MEDICARE PART A & B MEDICARE PPO BLUE REPLACEMENT MEDICARE PART A & B MEDICARE PPO BLUE REPLACEMENT MEDICARE PART A & B MEDICARE PPO BLUE REPLACEMENT MEDICARE PART A & B [place]UE REPLACEMENT Care Teams Certified Registered Nurse Anesthetist Relationship Specialty Start Date End Date Lala Moncada MD [address] [place] [address] PCP - General Internal Medicine 02/23/25 Lisa Mcgowan MD [address] [place] [address] [email or web address] Cardiology 04/14/25 Additional Source Comments The information contained in this document represents components of the legal health record. It is not the complete legal health record.[facility]
--- OUTSIDE RECORDS SUMMARY | 2025-04-19 11:47 | XMS_ITS | Encounter Summary ---
Author Organization [facility] Address [address] [place] [address] Phone Care Team Providers Care Cartoon Animator Name Role Phone Lala Moncada MD Primary Care Provider [phone] Ray Mcgowan MD Unavailable [phone] Encounter Details Date Type Department Care Team (Late st Contact Info) Description 03/03/2025 Procedure Pass [facility] PERIOPERATIVE DEPT [address] [place] [address] Social History Tobacco Use Types Packs/Day Years [...] Contact Info) Description 03/27/2025 Procedure Pass [facility] [address] [place] [address] 04/25/2025 11:00 AM EST Appointment [facility] Cardiac Stress Clinic [address] [place] [address] Ray Mcgowan MD [address] [place] [address] 04/25/2025 11:45 AM EST Appointment [facility] Cardiac Stress Clinic [address] [place] [address] Ray Mcgowan MD [address] [place] [address] 05/02/2025 10:20 AM EST Pre-Admission Testing [facility] PRETESTING [address] [place] [address] Juan A Redd MD [address] [address] [email or web address] 05/04/2025 1:30 PM EST Appointment [facility] [address] [place] [address] Ray Mcgowan MD [address] [place] [address] 05/16/2025 Procedure Pass [facility] PERIOPERATIVE DEPT [address] [place] [address] 05/16/2025 2:45 PM EST Hospital Encounter [facility] PERIOPERATIVE DEPT [address] [place] [address] Juan A Redd MD [address] [place] [address] PRADEEP@[email or web address] 05/16/2025 2:45 PM EST - 05/16/2025 5:25 PM EST Surgery [facility] PERIOPERATIVE DEPT [address] [place] [address] Juan A Redd MD [address] [place] [address] PRADEEP@[email or web address] ARTHROPLASTY TOTAL HIP 06/26/2025 12:30 PM EDT Office Visit [facility] Orthopedics [facility] 2013 [facility], [address] [address] Juan A Redd MD [address] [place] [address] PRADEEP@[email or web address] 08/14/2025 9:15 AM EDT Office Visit [facility] Orthopedics [facility] 2013 [facility], [address] [address] Juan A Redd MD [address] [place] [address] PRADEEP@[email or web address] Scheduled Procedures Name Priority [...] documented as of this encounter Care Teams Cartoon Animator Relationship Specialty Start Date End Date Lala Moncada MD 5 [place] [address] PCP - General Internal Medicine 02/23/25 Ray Mcgowan MD [address] [facility] [place] [address] [email or web address] Cardiology 04/14/25 documented as of this encounter Additional Source Comments The information contained in this document represents components of the legal health record. It is not the complete legal health record.[facility]
--- OUTSIDE RECORDS SUMMARY | 2025-04-19 11:47 | XMS_ITS | Encounter Summary ---
Author Organization [facility] Address [address] [facility] [address] [place] [address] Phone Care Team Providers Care Senior Technologist Name Role Phone Lala Moncada MD Primary Care Provider [phone] Ray Mcgowan MD Unavailable [phone] Reason for Visit * Auth/Cert (Routine) Specialty Diagnoses / Procedures Referred By Duyen nielson Referred To Contact Diagnoses Primary osteoarthritis of left hip M16.12 Procedures [place] TOTAL HIP ARTHROPLASTY ARTHROPLASTY TOTAL HIP MODIFIER ARTHROPLASTY TOTAL HIP Juan A Akins MD [address] [facility] [address] [place] [address] Phone: tel: fax: mailto:[email or web address] Referral ID Status Reason Start Date Expiration Date Visits Re quested Visits Authorized [id number] 01/06/2025 1 1 Encounter Details Date Type Department Care Team (Late st Contact Info) Description 03/03/2025 Hospital Encounter [facility] PERIOPERATIVE DEPT [address] [place] [address] Juan A Redd MD [address] [place] [address] PRADEEP@[email or web address] Social History Tobacco Use Types Packs/Day Years [...] (Latest Contact Info) Description 03/27/2025 Procedure Pass [facility] 30 [place] [address] 04/25/2025 11:00 AM EST Appointment [facility] Cardiac Stress [facility] [place] [address] Ray Mcgowan MD [address] [place] [address] [email or web address] 04/25/2025 11:45 AM EST Appointment [facility] Cardiac Stress Clinic [address] [place] [address] Ray Mcgowan MD [address] [place] [address] 05/02/2025 10:20 AM EST Pre-Admission Testing [facility] PRETESTING [address] [place] [address] Juan A Redd MD [address] [place] [address] PRADEEP@[email or web address] 05/04/2025 1:30 PM EST Appointment [facility] [address] [place] [address] Ray Mcgowan MD [address] [place] [address] 05/16/2025 Procedure Pass [facility] PERIOPERATIVE DEPT [address] [place] [address] 05/16/2025 2:45 PM EST Hospital Encounter [facility] PERIOPERATIVE DEPT [address] [place] [address] Juan A Redd MD [address] [place] [address] PRADEEP@[facility] 05/16/2025 2:45 PM EST - 05/16/2025 5:25 PM EST Surgery [facility] PERIOPERATIVE DEPT [address] [place] [address] Juan A Redd MD [address] [place] [address] PRADEEP@[email or web address] ARTHROPLASTY TOTAL HIP 06/26/2025 12:30 PM EDT Office Visit [facility] Orthopedics [facility] 2013 [facility], [address] [address] Juan A Redd MD [address] [place] [address] PRADEEP@[facility] 08/14/2025 9:15 AM EDT Office Visit [facility] Orthopedics [facility] 2013 [facility], [address] [address] Juan A Redd MD [address] [place] [address] PRADEEP@[facility] Scheduled Procedures Name Priority Associated Diagnoses Date/Ti me ARTHROPLASTY TOTAL HIP Primary osteoarthritis of left hip 05/16/2025 2:45 PM EST MODIFIER ARTHROPLASTY TOTAL HIP BARBARA Primary osteoarthritis of left hip 05/16/2025 2:45 PM EST documented as of this encounter Visit Diagnoses Not on filedocumented in this encounter Care Teams Senior Technologist Relationship Specialty Start Date End Date aLla Moncada MD [address] [place] [address] PCP - General Internal Medicine 02/23/25 Ray Mcgowan MD [address] [facility] [place] [address] [email or web address] Cardiology 04/14/25 documented as of this encounter Additional Source Comments The information contained in this document represents components of the legal health record. It is not the complete legal health record.[facility]
--- OUTSIDE RECORDS SUMMARY | 2025-04-19 11:47 | XMS_ITS | Encounter Summary ---
Author Organization [facility] Address [address] [facility] [address] [place] [address] Phone Care Team Providers Care Adobe Architect Name Role Phone Joy Diallo MD Primary Care Provider Lala Moncada MD Primary Care Provider [phone] Ray Mcgowan MD Unavailable [phone] Encounter Details Date Type Department Care Team (Late st Contact Info) Description 07/04/2021 Procedure Pass [facility] EKG [address] [place] [address] Social History Tobacco Use Types Packs/Day Years [...] Contact Info) Description 03/27/2025 Procedure Pass [facility] [address] [place] [address] 04/25/2025 11:00 AM EST Appointment [facility] [address] [place] [address] Ray Mcgowan MD [address] [place] [address] 04/25/2025 11:45 AM EST Appointment [facility] [address] [place] [address] Ray Mcgowan MD [address] [place] [address] 05/02/2025 10:20 AM EST Pre-Admission Testing [facility] PRETESTING [address] [place] [address] Juan A Redd MD [address] [place] [address] PRADEEP@[email or web address] 05/04/2025 1:30 PM EST Appointment [facility] [address] [place] [address] Ray Mcgowan MD [address] [place] [address] 05/16/2025 Procedure Pass [facility] PERIOPERATIVE DEPT [address] [place] [address] 05/16/2025 2:45 PM EST Hospital Encounter [facility] PERIOPERATIVE DEPT [address] [place] [address] Juan A Redd MD [address] [place] [address] PRADEEP@[email or web address] 05/16/2025 2:45 PM EST - 05/16/2025 5:25 PM EST Surgery [facility] PERIOPERATIVE DEPT [address] [place] [address] Juan A Redd MD [address] [place] [address] PRADEEP@[facility] ARTHROPLASTY TOTAL HIP 06/26/2025 12:30 PM EDT Office [facility] 2013 [facility], [address] [place] [address] Juan A Redd MD [address] [place] [address] PRADEEP@[email or web address] 08/14/2025 9:15 AM EDT Office Visit [facility] 2013 [facility], [facility] [address] [place] [address] Juan A Redd MD [address] [place] [address] PRADEEP@[email or web address] Scheduled Procedures Name Priority Associated Diagnoses Date/Ti me ARTHROPLASTY TOTAL HIP Primary osteoarthritis of left hip 05/16/2025 2:45 PM EST MODIFIER ARTHROPLASTY TOTAL HIP BARBARA Primary osteoarthritis of left hip 05/16/2025 2:45 PM EST documented as of this encounter Visit Diagnoses Not on filedocumented in this encounter Care Teams Adobe Architect Relationship Specialty Start Date End Date Joy Diallo MD [address] [place] [address] PCP - General 06/12/21 02/22/25 Lala Moncada MD [address] [place] [address] PCP - General Internal Medicine 02/23/25 Ray Mcgowan MD [address] [place] [address] [email or web address] Cardiology 04/14/25 documented as of this encounter Additional Source Comments The information contained in this document represents components of the legal health record. It is not the complete legal health record.[facility]
--- OUTSIDE RECORDS SUMMARY | 2025-04-19 11:47 | XMS_ITS | Clinical Summary ---
Author Organization [facility] Address [address] [id number] Care Team Providers Care Global Chief Creative Officer Name Role Phone Unavailable Primary Care Provider Unavailabl e Social History Tobacco Use Types Packs/Day Years Used Date Smoking Tobacco: Never Assessed Comments Unknown Sex and Gender Information Value Date Recorded Sex Assigned at Not on file Legal Sex Female 11:27 PM EST Gender Identity Not on file Sexual Orientation Not on file Plan of Treatment Health Maintenance Due Date Last Done Comments Blood Pressure 1955 Lipid Panel 1955 Depression Screening 1967 Hepatitis C Screening 1973 DTaP,Tdap,and Td Vaccines (1 - Tdap) 1974 Breast Cancer Screening [address] CT Colonography 02/20/2000 Colonoscopy 02/20/2000 Colorectal Cancer Screening 02/20/2000 FIT 02/20/2000 FOBT 02/20/2000 Multitarget Stool DNA (Cologuard) 02/20/2000 Sigmoidoscopy 02/20/2000 Pneumococcal Vaccine: 50+ Ye ars (1 of 1 - PCV) 2005 Zoster Vaccine (1 of 2) 2005 Osteoporosis Screening 02/20/2020 COVID-19 Vaccine (1 - 2024-2 6 season) 2024 Influenza Vaccine (#1) 2024 Meningococcal B Vaccines Aged Out No longer eligible based on patient's age to complete this topic Meningococcal Vaccines Aged Out No lo nger eligible based on patient's age to complete this topic
--- OUTSIDE RECORDS SUMMARY | 2025-04-19 11:47 | XMS_ITS | Patient Health Record ---
Author Organization [facility] Address [address] [place] [address] Care Team Providers Care Dielectric Tester Name Role Phone Triston CLEMENTE, Lorrie Primary Care Provider Gloria Jaffe Unavailable [phone] Allergies Allergen (clinical drug ingredient) Drug/Non Drug [...] Status Risk Notes Problem Postmenopausal atrophic vaginitis (03758870) Postmenopausal atrophic vaginitis (N95.2) Active confirmed Problem Essential hypertension (39847316) Essential (primary) hypertension (I10) Active confirmed Problem Major depression, single episode (62296466) Major depressive disorder, single episode, unspecified (F32.9) Active confirmed Problem History of malignant melanoma of the skin (393662704792) Personal history of malignant melanoma of skin (Z85.820) Active confirmed Problem Menopausal symptom (26772817) Symptomatic menopausal or female climacteric states (627.2) Active confirmed Major Plan Of Treatment Pending Test Test Name Order Date THIN PREP,HPV,KELLI IF HPV+ (>29YR)(SCRN) 07/01/2017 MM Digital Mammo Screening 07/01/2017 Insurance Providers Payer Name Payer Address Payer Phone Subscriber Number Group Number Insured Name Patient Relationship to Insured Coverage Start Date Coverage End Date [facility] [address] [place] [id number] [id number] CHAVA DUNCAN Self - patient is the [...]
== END 2025-04-19 12:10 | disposition home or self-care (01) ==
LOC: HO.HSMC 10:32
PROVIDERS: Visit Provider Physician Assistant Medical
DX: G47.19 Other hypersomnia (principal); H81.91 Unspecified disorder of vestibular function, right ear; R26.9 Unspecified abnormalities of gait and mobility; R06.83 Snoring
CPT/HCPCS: 99204

== ENCOUNTER → 2025-04-19 10:32 | Outpatient (BNVA) | payer MEDICARE, SELFPAY | PROVIDERS: Visit Provider Physician Assistant Medical | DX: G47.19 Other hypersomnia (principal); H81.91 Unspecified disorder of vestibular function, right ear; R26.9 Unspecified abnormalities of gait and mobility; R06.83 Snoring; Z71.89 Other specified counseling | CPT/HCPCS: 99202 ==